=== PATIENT | male | born 1960 | race Caucasian/White ===

== ENCOUNTER 2016-06-13 14:23 | Emergency (ER) ==
[2016-06-13 14:27] VITALS: BP 136/87; TEMP 98.4; BMI 26.3
[2016-06-13 14:58] LABS: BASOPHILS % (AUTO) 0.5 % (0.0-3.0); EOSINOPHILS # (AUTO) 0.3 K/ul (0.0-0.7); HEMATOCRIT 44.3 % (42.0-52.0); HEMOGLOBIN 15.3 g/dl (14.0-18.0); IMMATURE GRANULOCYTE % (AUTO) 0.4 % (0.0-5.0); LYMPHOCYTES # (AUTO) 2.6 K/uL (0.60-3.4); LYMPHOCYTES % (AUTO) 30.7 (10.0-50.0); MEAN CORPUSCULAR HEMOGLOBIN 30.7 pg (27.0-31.0); MEAN CORPUSCULAR HGB CONC 34.5 (31.8-35.4); MONOCYTES # (AUTO) 0.7 K/uL (0.4-2.0); MONOCYTES % (AUTO) 8.7 (0-10); NEUTROPHILS # (AUTO) 4.8 K/ul (2.0-6.9); NEUTROPHILS % (AUTO) 56.7; PLATELET COUNT 154 10^3/uL (140-440); RED BLOOD COUNT 4.98 10^6/ul (4.70-6.10); WHITE BLOOD COUNT 8.41 K/ul (4.2-10.2)
--- NOTE | 2016-06-13 15:17 | DI ---
EXAM: Chest one view, frontal view only. HISTORY: Chest pain. COMPARISON: None available. FINDINGS: Median sternotomy wires noted. Left-sided pacemaker is present. The heart size is normal. There is no pulmonary vascular congestion. The lungs are clear. No pleural effusion or pneumotho rax is seen. No acute osseous abnormality is identified. IMPRESSION: No acute cardiopulmonary process.
[2016-06-13 15:36] LABS: ALANINE AMINOTRANSFERASE 41 U/L (12-78); ALBUMIN 3.8 g/dL (3.4-5.0); ALBUMIN/GLOBULIN RATIO 1.12; ALKALINE PHOSPHATASE 98 U/L (50-136); ANION GAP 11.6; ASPARTATE AMINO TRANSFERASE 41 U/L (15-37); BLOOD UREA NITROGEN 22 mg/dL (7-18); CALCIUM 8.8 mg/dL (8.2-10.2); CARBON DIOXIDE 25 mmol/L (21-32); CHLORIDE 108 mmol/L (98-107); CREATINE KINASE 800 U/L; GLUCOSE 81 mg/dL (70-100); POTASSIUM 4.6 mmol/L (3.5-5.1); SODIUM 140 mmol/L (136-145); TOTAL PROTEIN 7.2 g/dL (6.4-8.2)
[2016-06-13 15:54] LABS: PARTIAL THROMBOPLASTIN TIME 23.7 SEC (23.9-40.0); PROTHROMBIN TIME 9.7 SEC (9.3-11.0)
--- NOTE | 2016-06-13 16:33 | ED.PDOC ---
General ED Provider: Dr. MARÍA ELENA JULIO Chief Complaint: Chest Pain Stated Complaint: chest pain Time Seen by Physician: 14:24 (chest pain , occured 3 days ago history of aortic stensis with valve repair) Mode of Arrival: Walk-In Information Source: Patient Exam Limitations: No limitations [facility] and Triage Documentation Reviewed and Agree: Yes Cardiovascular Complaint Exam - Chest Pain Complaint/Exam Onset: Gradual Duration: 3days Symptoms Are: Still present Timing: Constant Initial Severity: Mild Current Severity: Mild Location: Reports: Midsternal Pain Radiates: Reports: None Character: Reports: Dull Aggravating: Reports: None Alleviating: Reports: None Associated Signs and Symptoms: Denies: Diaphoresis, Nausea, Vomiting, Fever, Palpitations, Cough, Hemoptysis, Back pain, Abdominal pain, Dizziness, Short of air, Calf pain, Calf swelling Related History: Reports: Similar episode Related Surgical History: Reports: None History of Healthcare-Acquired Pneumonia: Reports: No AMI/ACS Risk Factors: Reports: None TAD Risk Factors: Reports: None Pulmonary Embolism Risk Factors: Reports: None Prior Care for this Complaint: No Recent Stress Test: No Recent Echo/LV Function: No JVD Present: No Subcutaneous Emphysema Present: No Diminshed Breath Sounds: No Reproducible Chest Wall Pain: No Bilateral Pulses Present: No Unequal Pulses Noted: No If Risk Factors for AMI/ACS Consider: EKG, Cardiac Enzymes Differential Diagnoses: ACS, Stable Angina Quality Indicators For Acute NE or Cardiac Chest Pain: EKG in 10min. Review of Systems - Review Of Systems Constitutional: Reports: No symptoms Eyes: Reports: No symptoms Ears, Nose, Mouth, Throat: Reports: No symptoms Respiratory: Reports: No symptoms Cardiac: Reports: Chest pain GI: Reports: No symptoms : Reports: No symptoms Musculoskeletal: Reports: No symptoms Skin: Reports: No symptoms Neurological: Reports: No symptoms Endocrine: Reports: No symptoms Hematologic/Lymphatic: Reports: No symptoms All Other Systems: Reviewed and Negative Past Medical History - Past Medical History Previously Healthy: No Endocrine: Reports: None Cardiovascular: Reports: Hypertension Respiratory: Reports: Asthma Hematological: Reports: None Gastrointestinal: Reports: PUD Genitourinary: Reports: None Neuro/Psych: Reports: None Musculoskeletal: Reports: None Cancer: Reports: None - Surgical History General Surgical History: Reports: Pacemaker (AORTIC VALVE REPLACEMENT PACEMAKER ) - Family History Family History: Reports: Unknown - Social History Smoking Status: Former smoker Hx Substance Use: No Alcohol Screening: Occasionally Physical Exam - Physical Exam Appearance: Well-appearing, No pain distress, Well-nourished Eyes: JESSICA, EOMI, Conjunctiva clear ENT: Ears normal, Nose normal, Oropharynx normal Respiratory: Airway patent, Breath sounds clear, Breath sounds equal, Respirations nonlabored Cardiovascular: RRR, Pulses normal, No rub, No murmur GI/: Soft, Nontender, No masses, Bowel sounds normal, No Organomegaly Musculoskeletal: Normal strength, ROM intact, No edema, No calf tenderness Skin: Warm, Dry, Normal color Neurological: Sensation intact, Motor intact, Reflexes intact, Cranial nerves intact, Alert, Oriented Psychiatric: Affect appropriate, Mood appropriate Physician Notification - Case Discussed Physician Notified: anna YEPEZ Time of Notification: 16:34 Critical Care Note - Critical Care Note Total Time (mins): 0 Course - Course Hematology/Chemistry: 06/13/16 14:45 06/13/16 14:45 Orders, Labs, Meds: Lab Review 06/13/16 14:45 WBC 8.41 RBC 4.98 Hgb 15.3 Hct 44.3 MCV 89.0 MCH 30.7 MCHC 34.5 RDW Coeff of Kyara 13.1 Plt Count 154 Immature Gran % (Auto) 0.4 Neut % (Auto) 56.7 Lymph % (Auto) 30.7 [place] % (Auto) 8.7 Eos % (Auto) 3.0 Baso % (Auto) 0.5 Immature Gran # (Auto) 0.0 Neut # 4.8 Lymph # 2.6 [place] # 0.7 Eos # 0.3 Baso # 0.0 PT 9.7 INR 0.94 APTT 23.7 L D-Dimer 0.70 Sodium 140 Potassium 4.6 Chloride 108 H Carbon Dioxide 25 Anion Gap 11.6 BUN 22 H Creatinine 1.10 Estimated GFR (MDRD) 70.00 BUN/Creatinine Ratio 20.00 Glucose 81 Calcium 8.8 Total Bilirubin 0.30 AST 41 H ALT 41 Alkaline Phosphatase 98 Total Creatine Kinase 800 CK-MB (CK-2) 0.1 CK-MB (CK-2) % 0.59734 Troponin I < 0.0100 Total Protein 7.2 Albumin 3.8 Globulin 3.4 Albumin/Globulin Ratio 1.12 Orders Category Date Time Status EKG-(ED ONLY) Stat CARDIO 06/13/16 14:44 Ordered EKG-(ED ONLY) Stat CARDIO 06/13/16 16:06 Ordered ED IV/MEDIPORT/POWERPORT .ONCE EMERGENCY 06/13/16 14:44 Active CBC W/ AUTO DIFF Stat LAB 06/13/16 14:45 Completed COMPREHENSIVE METABOLIC PANEL Stat LAB 06/13/16 14:45 Completed CREATINE KINASE Stat LAB 06/13/16 14:45 Completed D-DIMER Stat LAB 06/13/16 14:45 Completed PARTIAL THROMBOPLASTIN TIME Stat LAB 06/13/16 14:45 Completed PT WITH INR Stat LAB 06/13/16 14:45 Completed TROPONIN I Stat LAB 06/13/16 14:45 Completed 0.9 % Sodium Chloride [Saline Flush] MEDS 06/13/16 14:43 Active 1 syr IVF PRN PRN CHEST, 1V AP ONLY Stat RADS 06/13/16 14:44 Completed Medications Generic Name Dose Route Start Last Admin Trade Name Freq PRN Reason Stop Dose Admin Sodium Chloride 1 syr 06/13/16 14:43 Saline Flush IVF PRN PRN To flush IV Vital Signs: Temp Pulse Resp BP Pulse Ox 06/13/16 14:23 98.4 F 78 16 136/87 95 PREETI Risk Score PREETI Risk Score: Risk Score Odds of by 30D 0 0.1 (0.1-0.2) 1 0.3 (0.2-0.3) 2 0.4 (0.3-0.5) 3 0.7 (0.6-0.9) 4 1.2 (1.0-1.5) 5 2.2 (1.9-2.6) 6 3.0 (2.5-3.6) 7 4.8 (3.8-6.1) Departure - Departure Time of Disposition: 16:34 Disposition: HOME SELF-CARE Discharge Problem: Chest pain Condition: Good Pt referred to PMD for follow-up: Yes (TRANSFER ) Allergies/Adverse Reactions: Allergies No Known Allergies Allergy (Unverified 06/13/16 14:27)
[2016-06-14 15:17] LABS: CREATINE KINASE MB 6.9 ng/ml (0.0-3.6)
== END 2016-06-13 16:57 | disposition short-term general hospital (02) ==
LOC: ED 14:23
DX: R07.9 Chest pain, unspecified (principal); I10 Essential (primary) hypertension; Z95.0 Presence of cardiac pacemaker; Z95.2 Presence of prosthetic heart valve
CPT/HCPCS: 36415; 80053; 82550; 82553; 84484; 85025; 85379; 85610; 85730; 93005; 93010; 99285

== ENCOUNTER 2016-06-13 17:00 | Outpatient (CLI) ==
[2016-06-13 14:27] VITALS: BMI 26.3
== END 2016-06-13 17:01 | disposition home or self-care (01) ==
LOC: AMBL 17:00
PROVIDERS: ATTEND Internal Medicine
DX: R07.9 Chest pain, unspecified (principal)

== ENCOUNTER 2016-07-21 19:51 | Emergency (ER) ==
[2016-07-21 20:06] VITALS: BP 137/84; TEMP 98.7; BMI 28.5
--- NOTE | 2016-07-21 20:54 | ED.PDOC ---
General ED Provider: Dr. MAKEDA FAN Chief Complaint: Abdominal Pain Stated Complaint: Patient is a 55 year old male who comes to the Er with a 1.5 month history of Left abd pain. He states that he has a history of ulcers and had been on medications for it but was discontinued after a while. Time Seen by Physician: 20:48 Mode of Arrival: Walk-In Information Source: Patient Exam Limitations: No limitations Nursing and Triage Documentation Reviewed and Agree: Yes GI Complaint Exam - Abdominal Pain Complaint/Exam Onset: Gradual Duration: 1 month Symptoms Are: Still present Timing: Intermittent Initial Severity: Mild Current Severity: Mild Location of Pain: LUQ Radiates To: Denies: Chest, Back, Flank, LLQ, RLQ, Inguinal Character: Reports: Dull Aggravating: Reports: None Alleviating: Reports: None Associated Signs and Symptoms: Reports: Constipation. Denies: Diaphoresis, Fever, Cough, Chest pain, Dizziness, Back pain, Blood in stool, Dysuria, Urinary frequency, Decreased urine output, Decreased appetite, Discharge, Nausea , Vomiting, Diarrhea, Decreased activity AAA Risk Factors: Reports: None Cardiac Risk Factors: Reports: None Testicular Torsion Risk Factors: Reports: None Surgical Obstruction Risk Factors: Reports: None Related Surgical History: Reports: None Abdominal Findings: Present: None Differential Diagnoses: Appendicitis, PUD Review of Systems - Review Of Systems Constitutional: Reports: No symptoms Eyes: Reports: No symptoms Ears, Nose, Mouth, Throat: Reports: No symptoms Respiratory: Reports: No symptoms Cardiac: Reports: No symptoms GI: Reports: Abdominal pain, Constipated : Reports: No symptoms Musculoskeletal: Reports: No symptoms Skin: Reports: No symptoms Neurological: Reports: No symptoms Endocrine: Reports: No symptoms Hematologic/Lymphatic: Reports: No symptoms All Other Systems: Reviewed and Negative Past Medical History - Past Medical History Previously Healthy: No Endocrine: Reports: None Cardiovascular: Reports: Hypertension Respiratory: Reports: Asthma Hematological: Reports: None Gastrointestinal: Reports: PUD Genitourinary: Reports: None Neuro/Psych: Reports: None Musculoskeletal: Reports: None Cancer: Reports: None - Surgical History General Surgical History: Reports: Pacemaker (AORTIC VALVE REPLACEMENT PACEMAKER ) - Family History Family History: Reports: Unknown - Social History Smoking Status: Current some day smoker, Light tobacco smoker Hx Substance Use: No Alcohol Screening: Occasionally Physical Exam - Physical Exam Appearance: Well-appearing, Well-nourished Ill-appearing: Mild Eyes: JESSICA, EOMI, Conjunctiva clear ENT: Ears normal, Nose normal, Oropharynx normal Respiratory: Airway patent, Breath sounds clear, Breath sounds equal, Respirations nonlabored Cardiovascular: RRR, Pulses normal, No rub, No murmur GI/: Soft, Nontender, No masses, Bowel sounds normal, No Organomegaly Musculoskeletal: Normal strength, ROM intact, No edema, No calf tenderness Skin: Warm, Dry, Normal color Neurological: Sensation intact, Motor intact, Reflexes intact, Cranial nerves intact, Alert, Oriented Psychiatric: Anxious Interpretation - Radiology Interpretation Radiology Interpretation By: Radiologist Radiology Results: Negative Exam Interpreted: CT Scan (Abdomen ) Critical Care Note - Critical Care Note Total Time (mins): 0 Course - Course Hematology/Chemistry: 07/21/16 21:23 07/21/16 21:23 Orders, Labs, Meds: Lab Review 07/21/16 21:23 WBC 9.35 RBC 5.14 Hgb 15.6 Hct 45.7 MCV 88.9 MCH 30.4 MCHC 34.1 RDW Coeff of [place] 13.0 Plt Count 180 Immature Gran % (Auto) 0.1 Neut % (Auto) 60.3 Lymph % (Auto) 27.1 [place] % (Auto) 8.7 Eos % (Auto) 3.3 Baso % (Auto) 0.5 Immature Gran # (Auto) 0.0 Neut # 5.6 Lymph # 2.5 [place] # 0.8 Eos # 0.3 Baso # 0.1 Sodium 142 Potassium 4.1 Chloride 105 Carbon Dioxide 28 Anion Gap 13.1 BUN 20 H Creatinine 1.12 H Estimated GFR (MDRD) 68.00 BUN/Creatinine Ratio 17.85 Glucose 79 Calcium 9.0 Total Bilirubin 0.42 AST 31 ALT 31 Alkaline Phosphatase 102 Total Protein 7.3 Albumin 4.0 Globulin 3.3 Albumin/Globulin Ratio 1.21 Amylase 57 Lipase 44 Orders Category Date Time Status ED IV/MEDIPORT/POWERPORT .ONCE EMERGENCY 07/21/16 21:39 Active AMYLASE Stat LAB 07/21/16 21:23 Completed CBC W/ AUTO DIFF Stat LAB 07/21/16 21:23 Completed COMPREHENSIVE METABOLIC PANEL Stat LAB 07/21/16 21:23 Completed LIPASE Stat LAB 07/21/16 21:23 Completed 0.9 % Sodium Chloride [Saline Flush] MEDS 07/21/16 21:39 Discontinued 1 syr IVF PRN PRN Dicyclomine HCl [Bentyl] MEDS 07/21/16 22:33 Discontinued 20 mg PO ONCE STA Ondansetron HCl/Pf [Zofran 4 mg/2 ml] MEDS 07/21/16 21:40 Discontinued 4 mg IVP ONCE STA Pantoprazole Sodium [Protonix IV] MEDS 07/21/16 21:39 Discontinued [address]P ONCE [address] CT ABD/PEL WO RENAL STONE PROT Stat RADS 07/21/16 21:01 Completed Medications Discontinued Medications Generic Name Dose Route Start Last Admin Trade Name Freq PRN Reason Stop Dose Admin Dicyclomine HCl 20 mg 07/21/16 22:33 07/21/16 22:45 Bentyl PO 07/21/16 22:34 20 mg ONCE STA Administration Ondansetron HCl 4 mg 07/21/16 21:40 07/21/16 22:26 Zofran 4 Mg/2 Ml IVP 07/21/16 21:41 4 mg ONCE STA Administration Pantoprazole Sodium 40 mg 07/21/16 21:39 07/21/16 22:25 Protonix Iv IVP 07/21/16 21:40 40 mg ONCE STA Administration Sodium Chloride 1 syr 07/21/16 21:39 Saline Flush IVF PRN PRN To flush IV Vital Signs: Temp Pulse Resp BP Pulse Ox 07/21/16 19:55 98.7 F 67 20 137/84 95 Departure - Departure Time of Disposition: 22:33 Disposition: HOME SELF-CARE Discharge Problem: Abdominal pain Instructions: Abdominal Pain (ED) Condition: Fair Pt referred to PMD for follow-up: Yes Additional Instructions: Take Over the counter Prilosec daily Follow up with PCP in 3 days Prescriptions: Dicyclomine HCl [Bentyl] 10 mg PO TID PRN #20 capsule PRN Reason: Abdominal Pain Allergies/Adverse Reactions: Allergies No Known Allergies Allergy (Verified 07/21/16 20:01) Home Medications: Ambulatory Orders Dicyclomine HCl [Bentyl] 10 mg PO TID PRN #20 capsule 07/21/16 Metoprolol Succinate 25 mg PO BID 07/21/16 Disposition Discussed With: Patient
[2016-07-21 21:28] LABS: BASOPHILS # (AUTO) 0.1 K/uL (0-0.2); BASOPHILS % (AUTO) 0.5 % (0.0-3.0); EOSINOPHILS # (AUTO) 0.3 K/ul (0.0-0.7); EOSINOPHILS % (AUTO) 3.3 % (0.0-7.0); HEMATOCRIT 45.7 % (42.0-52.0); HEMOGLOBIN 15.6 g/dl (14.0-18.0); IMMATURE GRANULOCYTE % (AUTO) 0.1 % (0.0-5.0); LYMPHOCYTES # (AUTO) 2.5 K/uL (0.60-3.4); LYMPHOCYTES % (AUTO) 27.1 (10.0-50.0); MEAN CORPUSCULAR HEMOGLOBIN 30.4 pg (27.0-31.0); MEAN CORPUSCULAR HGB CONC 34.1 (31.8-35.4); MEAN CORPUSCULAR VOLUME 88.9 fl (80.0-94.0); MONOCYTES # (AUTO) 0.8 K/uL (0.4-2.0); MONOCYTES % (AUTO) 8.7 (0-10); NEUTROPHILS # (AUTO) 5.6 K/ul (2.0-6.9); NEUTROPHILS % (AUTO) 60.3; PLATELET COUNT 180 10^3/uL (140-440); RED BLOOD COUNT 5.14 10^6/ul (4.70-6.10); WHITE BLOOD COUNT 9.35 K/ul (4.2-10.2)
--- NOTE | 2016-07-21 21:37 | CT ---
Exam: CT of the abdomen and pelvis without contrast History: Abdominal pain Technique: [address] of the abdomen pelvis without intravascular contrast FINDINGS: The lung bases are clear. No significant liver abnormality. The adrenals, pancreas and sp sai are unremarkable. The stomach and hiatus are unremarkable. Cholelithiasis without pericholecyst ic inflammation or abnormal gallbladder distension. Kidneys and proximal collecting system are unrem arkable. The appendix is normal. Bowel loops demonstrate normal caliber. No inflamatory change seen in the mesentery or retroperitoneum. Vascular structures appear normal by noncontrast CT. Pelvic genitourinary structures appear normal. Pelvic bowel loops are unremarkable. No inflammatory change in the pelvic fat. No acute abnormality of the abdominal or pelvic skeleton. Impression: 1. No inflammatory process, bowel or urinary obstruction is seen. No acute findings of the abdomen or pelvis. 2. Cholelithiasis without CT evidence of cholecystitis
[2016-07-21 21:49] LABS: ALBUMIN/GLOBULIN RATIO 1.21; ANION GAP 13.1; BILIRUBIN,TOTAL 0.42 mg/dL (0.00-1.20); BUN/CREATININE RATIO 17.85; CREATININE 1.12 mg/dL (0.60-1.10); POTASSIUM 4.1 mmol/L (3.5-5.1); TOTAL PROTEIN 7.3 g/dL (6.4-8.2)
[2016-07-21] MEDS: PROTONIX IV IVP STA (22:25)
[2016-07-21] MEDS: ZOFRAN 4 MG/2 ML IVP STA (22:26)
[2016-07-21] MEDS: BENTYL PO STA (22:45)
== END 2016-07-21 22:51 | disposition home or self-care (01) ==
LOC: ED 19:51
DX: R10.12 Left upper quadrant pain (principal); F17.210 Nicotine dependence, cigarettes, uncomplicated
CPT/HCPCS: 36415; 74176; 80053; 82150; 83690; 85025; 96375; 99283

== ENCOUNTER 2016-09-23 14:34 | Outpatient (CLI) ==
[2016-09-23 18:16] LABS: ALBUMIN 4.1 g/dL (3.4-5.0); ALBUMIN/GLOBULIN RATIO 1.14; ANION GAP 11.2; BILIRUBIN,TOTAL 0.68 mg/dL (0.00-1.20); BUN/CREATININE RATIO 19.23; CALCIUM 9.2 mg/dL (8.2-10.2); CHOL/HDL RATIO 5.2 (4.5-6.4); CREATININE 1.04 mg/dL (0.60-1.10); POTASSIUM 4.2 mmol/L (3.5-5.1); TOTAL PROTEIN 7.7 g/dL (6.4-8.2)
== END 2016-09-23 14:35 | disposition home or self-care (01) ==
LOC: LAB 14:34
PROVIDERS: ATTEND Nurse Practitioner Family
DX: Z95.2 Presence of prosthetic heart valve (principal); Z12.5 Encounter for screening for malignant neoplasm of prostate
CPT/HCPCS: 36415; 80053; 80061; 84443

== ENCOUNTER 2017-02-06 11:46 | Outpatient (CLI) ==
--- NOTE | 2017-02-06 13:02 | DI ---
Exam: Three x-rays of the right foot. Comparison: None available. Reason for exam: Pain in right foot. FINDINGS: No acute fracture or dislocation. The joint spaces are well maintained. There is a moder ate amount of arthrosis seen in the midfoot. No unexplained calcific soft tissue densities or radiop aque retained foreign bodies. Impression: No acute fracture or dislocation in the right foot
--- NOTE | 2017-02-06 13:05 | DI ---
Exam: Three x-rays of the left foot. Comparison: None available. Reason for exam: Pain in left foot. FINDINGS: No acute fracture or malalignment. The joint spaces are well maintained. Degenerative di sease is seen in the midfoot and calcaneus. Impression: No acute fracture or dislocation in the left foot
== END 2017-02-06 11:47 | disposition home or self-care (01) ==
LOC: RAD 11:46
PROVIDERS: ATTEND Nurse Practitioner Family
DX: M79.672 Pain in left foot (principal); M79.671 Pain in right foot

== ENCOUNTER 2017-04-19 12:46 | Outpatient (CLI) ==
[2017-04-19 13:30] LABS: BASOPHILS # (AUTO) 0.1 K/uL (0-0.2); BASOPHILS % (AUTO) 0.8 % (0.0-3.0); EOSINOPHILS # (AUTO) 0.3 K/ul (0.0-0.7); HEMATOCRIT 47.2 % (42.0-52.0); IMMATURE GRANULOCYTE % (AUTO) 0.2 % (0.0-5.0); LYMPHOCYTES # (AUTO) 1.8 K/uL (0.60-3.4); LYMPHOCYTES % (AUTO) 28.7 (10.0-50.0); MEAN CORPUSCULAR HEMOGLOBIN 30.2 pg (27.0-31.0); MEAN CORPUSCULAR HGB CONC 33.9 (31.8-35.4); MEAN CORPUSCULAR VOLUME 89.2 fl (80.0-94.0); MONOCYTES # (AUTO) 0.6 K/uL (0.4-2.0); MONOCYTES % (AUTO) 9.1 (0-10); NEUTROPHILS # (AUTO) 3.6 K/ul (2.0-6.9); NEUTROPHILS % (AUTO) 57.2; PLATELET COUNT 193 10^3/uL (140-440); RED BLOOD COUNT 5.29 10^6/ul (4.70-6.10); WHITE BLOOD COUNT 6.23 K/ul (4.2-10.2)
[2017-04-19 14:15] LABS: ALBUMIN/GLOBULIN RATIO 1.08; ANION GAP 14.6; BILIRUBIN,TOTAL 0.34 mg/dL (0.00-1.20); BUN/CREATININE RATIO 21.15; CALCIUM 9.6 mg/dL (8.2-10.2); CHOL/HDL RATIO 4.8 (4.5-6.4); CREATININE 1.04 mg/dL (0.60-1.10); POTASSIUM 4.6 mmol/L (3.5-5.1); TOTAL PROTEIN 7.7 g/dL (6.4-8.2)
== END 2017-04-19 12:47 | disposition home or self-care (01) ==
LOC: LAB 12:46
PROVIDERS: ATTEND Nurse Practitioner Family
DX: E78.5 Hyperlipidemia, unspecified (principal); K21.9 Gastro-esophageal reflux disease without esophagitis; R53.83 Other fatigue
CPT/HCPCS: 36415; 80053; 80061; 82306; 84439; 84443; 85025

== ENCOUNTER 2017-05-10 10:35 | Emergency (ER) ==
[2017-05-10 10:46] VITALS: BP 138/79; TEMP 103.3; BMI 28.2
--- NOTE | 2017-05-10 11:17 | DI ---
Exam: Three x-rays of the chest. Comparison: 06/13/2016. Reason for exam: Cough. FINDINGS: Operative changes are seen after midline sternotomy and implanted intracardiac device plac ement. No pneumothorax, pleural effusion, or focal consolidation. The cardiac silhouette is unchanged. The imaged osseous structures appear grossly unremarkable without acute fracture. Degenerative disease is seen in the thoracic spine. Impression: No acute cardiopulmonary process.
[2017-05-10] MEDS ORDERED: ZITHROMAX PO STA (12:02)
[2017-05-10] MEDS ORDERED: SODIUM CHLORIDE 1,000 ML IV STA (12:02)
[2017-05-10] MEDS ORDERED: SOLU-MEDROL 125 MG IVP STA (12:02)
[2017-05-10] MEDS ORDERED: TUSSIONEX PO STA ×2 (12:03→12:11)
--- NOTE | 2017-05-10 13:18 | ED.PDOC ---
General ED Provider: Dr. MARÍA ELENA JULIO Chief Complaint: Respiratory Complaint Stated Complaint: cough, flu like symptoms Time Seen by Physician: 11:00 (seen with staff ) Mode of Arrival: Walk-In Information Source: Patient Exam Limitations: No limitations [facility] and Triage Documentation Reviewed and Agree: Yes Reviewed sepsis parameters & appropriate labs ordered?: Yes System Inflammatory Response Syndrome: Temp 101F or Greater Sepsis Protocol: For patient's 13 years and over: Temp is 96.8 and below OR 101 and greater Pulse >90 BPM Resp >20/minute Acutely Altered Mental Status Are patient's symptoms suggestive of a new infection, such as: -Pneumonia -Skin, Soft Tissue -Endocarditis -UTI -Bone, Joint Infection -Implantable Device -Acute Abdominal Infection -Wound Infection -Meningitis -Blood Stream Catheter Infection -Unknown Respiratory Complaint Exam - Respiratory Complaint/Exam Onset/Duration: 2 days of flu like symptoms Symptoms Are: Still present Timing: Intermittent Initial Severity: Moderate Current Severity: Moderate Location: Nose, Throat, Chest Character: Reports: Non-productive cough, Dry cough Aggravating: Reports: URI Alleviating: Reports: Spontaneous resolution, Antibiotics Associated Signs and Symptoms: Reports: Nasal congestion, Sore throat. Denies: Rapid breathing, Dyspnea, Fever, Chills, Chest pain, Pleuritic chest pain, Wheezing, Hemoptysis, Dizziness, Calf pain, Calf swelling, Edema, URI, Hoarseness, Sinus discomfort, Vomiting, Weight loss, Decreased oral intake, Increased thirst, Increased appetite, Increased urination Related History: Reports: Similar episode History of Healthcare-Acquired Pneumonia: No Related Surgical History: Reports: None Pulmonary Embolism Risk Factors: None Cardiac Risk Factors: Reports: None Pseudomonas Risk Factors: Reports: None Tuberculosis Risk Factors: Reports: None Status Asthmaticus Risk Factors: Reports: None Home Oxygen Use: No Recent Stress Test: No Recent Echo/LV Function: No Current Antibiotic Use: No Current Asthma Medication Use: No Respiratory Distress: None Inadequate Respiratory Effort: No Dysphagia Present: No Stridor Present: No JVD Present: No Accessory Muscle Use: No Retractions: Not Present Diminished Breath Sounds: No Grunting Respirations: No Kussmaul Respirations: No Differential Diagnoses: Pneumonia, Bronchitis, Lower Resp. Infection Review of Systems - Review Of Systems Constitutional: Reports: No symptoms Eyes: Reports: No symptoms Ears, Nose, Mouth, Throat: Reports: No symptoms Respiratory: Reports: Cough Cardiac: Reports: No symptoms GI: Reports: Nausea, Vomiting : Reports: No symptoms Musculoskeletal: Reports: No symptoms Skin: Reports: No symptoms Neurological: Reports: No symptoms Endocrine: Reports: No symptoms Hematologic/Lymphatic: Reports: No symptoms All Other Systems: Reviewed and Negative Past Medical History - Past Medical History Previously Healthy: No Endocrine: Reports: None Cardiovascular: Reports: Hypertension Respiratory: Reports: Asthma Hematological: Reports: None Gastrointestinal: Reports: PUD Genitourinary: Reports: None Neuro/Psych: Reports: None Musculoskeletal: Reports: None Cancer: Reports: None - Surgical History General Surgical History: Reports: Pacemaker (AORTIC VALVE REPLACEMENT PACEMAKER ) - Family History Family History: Reports: Unknown - Social History Smoking Status: Former smoker, Light tobacco smoker Hx Substance Use: No Alcohol Screening: None Physical Exam - Physical Exam Appearance: Ill-appearing Ill-appearing: Moderate Pain Distress: Moderate Eyes: JESSICA, EOMI, Conjunctiva clear ENT: Ears normal, Nose normal, Oropharynx normal Respiratory: Rhonchi Cardiovascular: RRR, Pulses normal, No rub, No murmur GI/: Soft, Nontender, No masses, Bowel sounds normal, No Organomegaly Musculoskeletal: Normal strength, ROM intact, No edema, No calf tenderness Skin: Warm, Dry, Normal color Neurological: Sensation intact, Motor intact, Reflexes intact, Cranial nerves intact, Alert, Oriented Psychiatric: Affect appropriate, Mood appropriate Interpretation - Radiology Interpretation Radiology Interpretation By: Radiologist Radiology Results: No acute changes Critical Care Note - Critical Care Note Total Time (mins): 0 Course - Course Hematology/Chemistry: 05/10/17 10:51 05/10/17 11:15 Orders, Labs, Meds: Lab Review 05/10/17 05/10/17 05/10/17 10:45 10:51 11:15 WBC 7.99 RBC 5.49 Hgb 16.9 Hct 48.9 MCV 89.1 MCH 30.8 MCHC 34.6 RDW Coeff of Kyara 13.3 Plt Count 145 Immature Gran % (Auto) 0.3 Neut % (Auto) 80.0 Lymph % (Auto) 9.9 L [place] % (Auto) 8.9 Eos % (Auto) 0.3 Baso % (Auto) 0.6 Immature Gran # (Auto) 0.0 Neut # 6.4 Lymph # 0.8 [place] # 0.7 Eos # 0.0 Baso # 0.1 Sodium 138 Potassium 4.1 Chloride 102 Carbon Dioxide 27 Anion Gap 13.1 BUN 15 Creatinine 1.42 H Estimated GFR (MDRD) 52.00 BUN/Creatinine Ratio 10.56 Glucose 99 Lactic Acid Calcium 9.3 Total Bilirubin 0.5 AST 28 ALT 36 Alkaline Phosphatase 109 Total Protein 8.0 Albumin 4.2 Globulin 3.8 Albumin/Globulin Ratio 1.11 Procalcitonin Influenza A (Rapid) Positive by naat H Influenza B (Rapid) Negative by naat 05/10/17 05/10/17 11:15 11:15 WBC RBC Hgb Hct MCV MCH MCHC RDW Coeff of Kyara Plt Count Immature Gran % (Auto) Neut % (Auto) Lymph % (Auto) [place] % (Auto) Eos % (Auto) Baso % (Auto) Immature Gran # (Auto) Neut # Lymph # [place] # Eos # Baso # Sodium Potassium Chloride Carbon Dioxide Anion Gap BUN Creatinine Estimated GFR (MDRD) BUN/Creatinine Ratio Glucose Lactic Acid 8.9 Calcium Total Bilirubin AST ALT Alkaline Phosphatase Total Protein Albumin Globulin Albumin/Globulin Ratio Procalcitonin 0.12 Influenza A (Rapid) Influenza B (Rapid) Orders Category Date Time Status BLOOD CULTURE (ED ONLY) Stat LAB 05/10/17 11:15 Received CBC W/ AUTO DIFF Stat LAB 05/10/17 10:51 Completed COMPREHENSIVE METABOLIC PANEL Stat LAB 05/10/17 11:15 Completed LACTIC ACID Stat LAB 05/10/17 11:15 Completed MOLECULAR FLU A/B Stat LAB 05/10/17 10:45 Completed MOLECULAR GROUP A STREP Stat LAB 05/10/17 10:45 Results PROCALCITONIN Stat LAB 05/10/17 11:15 Completed STREP SCREEN Stat LAB 05/10/17 10:45 Results Azithromycin [Zithromax] MEDS 05/10/17 12:02 Discontinued 1,000 mg PO ONCE STA Hydrocodone/Chlorphen Polis [Tussionex] MEDS 05/10/17 12:11 Discontinued 5 ml PO ONCE STA Methylprednisolone Sod Succ/Pf [Solu-Medrol 125 mg] MEDS 05/10/17 12:02 Discontinued 125 mg IVP ONCE STA Sodium Chloride 0.9% [Sodium Chloride] 1,000 ml MEDS 05/10/17 12:02 Discontinued IV BOLUS CHEST, 2 VIEWS PA & LAT Stat RADS 12/27/17 10:51 Completed Medications Discontinued Medications Generic Name Dose Route Start Last Admin Trade Name Mary PRN Reason Stop Dose Admin Azithromycin 1,000 mg 05/10/17 12:02 05/10/17 12:33 Zithromax PO 05/10/17 12:03 1,000 mg ONCE STA Administration Chlorphenir/Hydrocodone Polistirex 5 ml 05/10/17 12:11 05/10/17 12:32 Tussionex PO 05/10/17 12:12 5 ml ONCE STA Administration Sodium Chloride 1,000 mls @ 1,000 mls/hr 05/10/17 12:02 05/10/17 12:35 Sodium Chloride IV 05/10/17 13:01 1,000 mls/hr BOLUS STA Administration Methylprednisolone Sodium Succinate 125 mg 05/10/17 12:02 05/10/17 12:35 Solu-Medrol 125 Mg IVP 05/10/17 12:03 125 mg ONCE STA Administration Vital Signs: Temp Pulse Resp BP Pulse Ox 05/10/17 10:38 103.3 F H 99 H 20 138/79 95 Departure - Departure Time of Disposition: 13:18 Disposition: HOME SELF-CARE Discharge Problem: Influenza Instructions: Pharyngitis (ED), Influenza (ED) Condition: Good Pt referred to PMD for follow-up: Yes Additional Instructions: Please call your Family Physician as soon as possible to schedule a follow-up appointment. Allergies/Adverse Reactions: Allergies No Known Allergies Allergy (Verified 05/10/17 10:37) Home Medications: Ambulatory Orders Metoprolol Succinate 25 mg PO BID 07/21/16 Disposition Discussed With: Patient
== END 2017-05-10 13:35 | disposition home or self-care (01) ==
LOC: ED 10:35
DX: J09.X2 Influenza due to identified novel influenza A virus with other respiratory manifestations (principal)
CPT/HCPCS: 36415; 80053; 83605; 84145; 85025; 87040; 87502; 87651; 87880; 96361; 96374; 99283

== ENCOUNTER 2017-08-31 08:19 | Outpatient (CLI) | END 2017-08-31 08:20 | disposition home or self-care (01) | LOC: LAB 08:19 | PROVIDERS: ATTEND Internal Medicine | DX: I10 Essential (primary) hypertension (principal) | CPT/HCPCS: 36415; 80053; 80061; 85025 ==

== ENCOUNTER 2017-10-06 10:13 | Outpatient (CLI) ==
--- NOTE | 2017-10-06 10:44 | DI ---
EXAM: Two views of the chest. History: Chest pain. Comparison: Chest radiograph 05/10/2017 Findings: Heart size is within normal limits. Pacer device and sternotomy wires are seen. Some typ e of heart valve device is identified. No focal consolidation. No appreciable pleural fluid and no p neumothorax. No acute osseous abnormalities. Impression: No acute cardiopulmonary process. No change compared to the prior study
--- NOTE | 2017-10-06 10:47 | DI ---
EXAM: Three views of the left foot. History: Left foot pain. Comparison: Left foot radiograph 02/06/2017 Findings: No acute fracture or dislocation. Mild calcaneal enthesiopathy. Mild to moderate degener ative changes seen at the mid foot with small dorsal osteophytes not significantly changed. Joint sp aces are otherwise preserved. Impression: 1. No acute osseous abnormality. 2. Mild to moderate degenerate changes seen at the mid foot. 3. Mild calcaneal enthesiopathy
--- NOTE | 2017-10-06 12:49 | DI ---
EXAM: Lumbar spine five views HISTORY: Low back pain FINDINGS: No comparison. Bone density appears within normal limits. There is subtle spinal curvatur e toward the left suggesting minimal scoliosis versus patient position. Sacroiliac joints are within normal limits. Lateral views reveal bridging osteophytic spurring of the mid lumbar spine. No loss of vertebral body height, fracture or spondylolisthesis. Mild to moderate facet arthropathy and deg enerative disc disease lumbosacral junction. Oblique views reveal intact pars interarticularis struc tures. IMPRESSION: Early degenerative changes of the spine including mild to moderate facet arthropathy and degenerative disc disease of the lumbosacral junction.
== END 2017-10-06 10:14 | disposition home or self-care (01) ==
LOC: CAR 10:13
PROVIDERS: ATTEND Nurse Practitioner Family
DX: M54.5 Low back pain (principal); I10 Essential (primary) hypertension; E78.5 Hyperlipidemia, unspecified; M79.622 Pain in left upper arm; M79.672 Pain in left foot; Z95.2 Presence of prosthetic heart valve
CPT/HCPCS: 36415; 80053; 80061; 81001; 85025; 93005; 93010

== ENCOUNTER 2017-10-19 09:36 | Outpatient (CLI) ==
--- NOTE | 2017-10-19 10:46 | DI ---
EXAM: Left shoulder three view HISTORY: Radiculopathy, cervical region COMPARISON: None FINDINGS: The bones are normal. The glenohumeral joint and acromioclavicular joint are normal. No fo maribell soft tissue abnormality. Visualized portion of the chest is normal. Left-sided cardiac pacer. IMPERSSION: Normal examination left shoulder.
--- NOTE | 2017-10-19 10:51 | DI ---
EXAM: Cervical spine seven views, including flexion and extension lateral views and oblique views HISTORY: Dizziness and giddiness COMPARISON: None TECHNIQUE: Seven views cervical spine were performed including flexion and extension lateral views a nd oblique views FINDINGS: C7 is obscured on the lateral and swimmers view. Vertebral bodies normal height. No fractu re. Multilevel marginal osteophyte formation. Multilevel facet and uncovertebral hypertrophy. Inter vertebral disc spaces maintained. Degenerative changes cause mild to moderate multilevel bilateral n eural foraminal narrowing. Straightening of the normal cervical lordosis in neutral position. No sp ondylolisthesis visualized in neutral position or with flexion or extension, noting C6 and C7 are obs cured on lateral views. IMPRESSION: Chronic discogenic degenerative disease and facet arthrosis. Straightening of the jus l cervical lordosis. No spondylolisthesis or segment instability visualized.
== END 2017-10-19 09:37 | disposition home or self-care (01) ==
LOC: RAD 09:36
PROVIDERS: ATTEND Nurse Practitioner Family
DX: R42 Dizziness and giddiness (principal); M54.2 Cervicalgia; M54.12 Radiculopathy, cervical region; M25.512 Pain in left shoulder

== ENCOUNTER 2017-10-25 10:20 | Outpatient (RCR) ==
--- NOTE | 2017-10-25 15:22 | RS.OPPTEV2 ---
Date of Note: 10/25/17 Visit #: 1 Date of Evaluation: 10/25/17 Payer Source: Medicaid Surgery Performed?: No Treatment Diagnosis: Left UE radiculopathy History of Condition/Mechanism of Injury:: Patient reports having tingling in the left UE for approximately 5 months. Denies any history of neck injury. 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 States he has tingling and pain into the left UE all the way to the tips of his fingers. States tingling has been constant for a while. Denies any right UE symptoms. He is right hand dominant. He has not noticed any deficit in left UE strength. Reports he gets lightheaded occasionally. He has not noticed any vision problems and no limited neck motion. *Precautions: PACEMAKER Medical History Surgical History Comments:: Heart valve 2014, Pacemaker 2014 Smoking Status: Former smoker Hx Home Medications: muscle relaxant. Patient's Goals: His goal is to get relief of left UE symptoms. Pain Assessment - Pain Description Pain Location: left UE Current Pain Intensity: 2/10 Worst Pain Intensity: 6/10 Functional Outcome Measure Neck Disability Index: 20 - G Codes & Severity Modifier G Codes & Modifier: NA Source of G Code score: NA Observation - Observation Posture: Forward Head, Rounded Shoulders Handedness: Right - ROM Comments: Cervical extension is approximately 50% of normal range. Flexion is WFL's. Cervical rotation bilaterally 75% of normal range of motion. Bilateral UE AROM is WFL's. - Strength Comments: Neck muscle strength is grossly 4+/5. Bilateral UE strength 5/5. - Special Tests Thoracic Outlet Test: Negative Left, Negative Right Ironer Or Presser Strength Left Hand Ironer Or Presser Strength: 52 lbs. Right Hand Ironer Or Presser Strength: 55 lbs. Dynamometer Testing Position: 2nd Position Palpation Comments:: Patient denies any pain during palpation to the cervical paraspinals , upper and middle traps. Demonstrates minimal increased muscle tone along bilateral cervical paraspinals and left upper traps. Sensation - Sensation Comments: Reports tingling throughout the entire left UE to the finger tips. Interventions - Exercise/Activities/Manual Therapy Exercises/Activities: Patient instructed in stretching into cervical lateral flexion and rotation. Also instructed in scapular retraction for home. Total minutes of Exercise: X 10 mins Manual Therapy: NA HOME EXERCISE PROGRAM: stretching into cervical lateral flexion and rotation. Also instructed in scapular retraction - Charges Timed Code Treatment Minutes: 0 mins Total Treatment Time: 38 mins Procedures billed for this date of service:: EVAL Low EVALUATION COMPLEXITY LEVEL EVALUATION COMPLEXITY LEVEL: HISTORY: Low, EXAM OF BODY SYSTEMS: Low, CLINICAL PRESENTATION: Low, CLINICAL DECISION MAKING: Low Assessment Assessment: Patient presents to therapy with a diagnosis of cervical degnerative disc disease and cervical facet arthropathy. He reports constant left UE tingling throughout the entire arm and hand. He reports no neck pain. Upon examination, he demonstrates decreased cervical AROM and minimal increased muscle tone in the cervical paraspinals and in the left upper traps. He has a forward head and shoulder posture. It is difficult to determine change in symptoms with Special Tests due to patient's reports of already having tingling and being vague regarding how tests affect his symptoms. He shows potential to benefit from stretching and postural strengthening exercises. He may also benefit from cervical traction to reduce his left UE radiating symptoms. Patient Education: Education of diagnosis, Body/Joint mechanics, Home Exercise Program, Activity Modification, Education of Plan of Care Rehab Potential: Good Short Term Goals Goal #1: Patient independent and compliant with HEP. Goal to be met by: 11/08/17 Goal #2: Left radicular symptom frequency decreased to less than constant. Goal to be met by: 11/08/17 Goal #3: Pt to demonstrate improved postural awareness. 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 Goal to be met by: 12/09/17 Goal #2: Score on Neck Disability Index improved to 8. Goal to be met by: 12/09/17 Goal #3: Pt to report no further symptoms of tingling into the left UE. Goal to be met by: 12/09/17 Plan - Treatment to be Provided Procedures: Therapeutic Exercises, Therapeutic Activity, Manual Therapy, Patient Education Modalities: Cryotherapy, Hot Packs, Mechanical Traction (CERVICAL) Other:: PATIENT HAS A PACEMAKER - Treatment Plan Frequency: 3 X week Duration: 3 weeks ORDER # VISITS AND/OR THROUGH DATE: 12/09/17 - Treatment Code (1) Cervical radiculopathy Code(s): M54.12 - RADICULOPATHY, CERVICAL REGION Comments: M54.12 (2) Tingling of left upper extremity Code(s): R20.2 - PARESTHESIA OF SKIN Comments: R20.2 (3) Cervical paraspinal muscle spasm Code(s): M62.49 - CONTRACTURE OF MUSCLE, MULTIPLE SITES Comments: M62.838 muscle spasm, not contracture
== END 2017-11-11 23:59 ==
PROVIDERS: ATTEND Nurse Practitioner Family
DX: M50.30 Other cervical disc degeneration, unspecified cervical region (principal); M46.92 Unspecified inflammatory spondylopathy, cervical region; M54.12 Radiculopathy, cervical region; R20.2 Paresthesia of skin; M62.838 Other muscle spasm

== ENCOUNTER 2017-12-29 12:57 | Outpatient (CLI) | END 2017-12-29 12:58 | disposition home or self-care (01) | LOC: FCC-LAB 12:57 | PROVIDERS: ATTEND Family Medicine | DX: R20.0 Anesthesia of skin (principal); E55.9 Vitamin D deficiency, unspecified | CPT/HCPCS: 36415; 82306; 82607 ==

== ENCOUNTER 2018-01-23 06:08 | Outpatient (CLI) ==
--- NOTE | 2018-01-25 12:34 | ECHO2D ---
Date of Exam: 01/23/18 Ordering Physician: DR. HILLARY MILLS Room #: OP Reason for Echo: HISTORY OF AORTIC VALVE REPLACEMENT-MURMUR M-Mode Normal Adult Results LV Dimensions Normal Adult Results AoV Opening excursions >1.6 >1.6 LVEDD-base- 3.5-5.8 5.2 Ao root dimensions 2.0-3.7 3.8 LVESD-base- 3.1-4.6 L. Atrium dimensions 1.9-3.8 3.7 Post. Wall thickness 0.8-1.1 1.3 IV septum (thickness) 0.7-1.2 1.4 Post. Wall excursion 0.72-1.3 NORMAL Septal motion NORMAL Systolic motion R. Ventricular cavity 1.5-2.0 NORMAL LVEF 60% 57% Paradoxical septal wall motion NORMAL 2-D : NORMALLY FUNCTIONING AORTIC VALVE--NORMAL LEFT VENTRICULAR CONTRACTILITY-- NORMAL TRICUSPID VALVE AND MITRAL VALVE--NO EFFUSION, NO THROMBUS M-MODE: MV: NORMAL AV: NORMAL PROSTHETIC VALVE TV: NORMAL PV: CHAMBER SIZE: NORMAL WALL MOTION: NORMAL PERICARDIUM: NORMAL INTERPRETATION: 1. LEFT VENTRICULAR HYPERTROPHY 2. NORMAL LEFT VENTRICULAR CONTRACTILITY 3. NORMAL AORTIC VALVE PROSTHESIS WITH NORMAL FUNCTION MTDD
== END 2018-01-23 06:09 | disposition home or self-care (01) ==
LOC: CAR 06:08
PROVIDERS: ATTEND Family Medicine
DX: R01.1 Cardiac murmur, unspecified (principal); Z95.2 Presence of prosthetic heart valve

== ENCOUNTER 2018-05-11 | Outpatient (CLI) | END 2018-05-11 06:13 | disposition home or self-care (01) ==

== ENCOUNTER 2019-01-03 06:13 | Outpatient (CLI) ==
--- NOTE | 2019-01-04 08:44 | ECHO2D ---
Date of Exam: 01/03/19 Ordering Physician: DR. HILLARY MILLS Room #: OP Reason for Echo: ATYPICAL CHEST PAIN, SOB, AORTIC VALVE REPLACED 2014 Murmurs: SYSTOLIC M-Mode Normal Adult Results LV Dimensions Normal Adult Results AoV Opening excursions >1.6 1.6 LVEDD-base- 3.5-5.8 5.3 Ao root dimensions 2.0-3.7 3.4 LVESD-base- 3.1-4.6 L. Atrium dimensions 1.9-3.8 3.8 Post. Wall thickness 0.8-1.1 1.2 IV septum (thickness) 0.7-1.2 1.3 Post. Wall excursion 0.72-1.3 NORMAL Septal motion NORMAL Systolic motion R. Ventricular cavity 1.5-2.0 NORMAL LVEF 60% 50% Paradoxical septal wall motion NORMAL 2-D : 2-D M Mode Echocardiogram was performed using apical four chamber and left parasternal long and short axis views. Mitral, tricuspid and aortic valves appear to be normal. Contractility of the left ventricle seems to be normal, so is the cavity size. Left atrial cavity size and aortic root appear to be normal. There is no pericardial effusion. There is no thrombus noted in the left ventricular or left aortic cavity. No mitral valve prolapse noted. NORMAL FUNCTIONING PROSTHETIC AORTIC VALVE M-MODE: MV: NORMAL AV: NORMAL FUNCTIONING PROSTHETIC AORTIC VALVE TV: NORMAL PV: NORMAL CHAMBER SIZE: NORMAL WALL MOTION: NORMAL PERICARDIUM: NORMAL INTERPRETATION: 1. LEFT VENTRICULAR HYPERTROPHY 2. NORMAL FUNCTIONING PROSTHETIC AORTIC VALVE 3. NORMAL LEFT VENTRICULAR CONTRACTILITY MTDD
== END 2019-01-03 06:14 | disposition home or self-care (01) ==
LOC: CAR 06:13
PROVIDERS: ATTEND Family Medicine
DX: R07.89 Other chest pain (principal)

== ENCOUNTER 2019-01-15 15:21 | Outpatient (CLI) | payer OTHER | END 2019-01-15 15:22 | disposition home or self-care (01) | LOC: RHC-LAB 15:21 → FCC-LAB 15:22 | PROVIDERS: ATTEND Family Medicine | DX: E78.5 Hyperlipidemia, unspecified (principal); J45.909 Unspecified asthma, uncomplicated | CPT/HCPCS: 36415; 80053; 80061; 85025 ==

== ENCOUNTER 2019-04-21 13:51 | Inpatient (IN) ==
--- NOTE | 2019-04-21 14:33 | CT ---
EXAM: CT scan chest without contrast HISTORY: Cough COMPARISON: None. FINDINGS: Contiguous axial images obtained through the thorax without contrast utilizing 5-mm collim ation. Sagittal and coronal reconstructions were imaged and reviewed.. The thoracic inlet is unrema rkable. There is left-sided dual lead pacemaker. The ascending aorta is ectatic measuring 3.7 cm. There are subcentimeter prevascular and pretracheal lymph the heart is normal in size without pericar dial effusion. Sternal wire sutures are noted. Consolidation is seen with the lingula. The right l ramesh is clear. There is no evidence of a pleural effusion.. Bone windows reveals no evidence of lyti c or blastic lesions. IMPRESSION: Prior median sternotomy. Ectatic ascending aorta. Lingular consolidation compatible with pneumonia
--- NOTE | 2019-04-21 14:41 | CT ---
Exam: CT abdomen pelvis without intravenous contrast. Comparison: 07/21/2016. Reason for exam: Pain. Chest pain. FINDINGS: Image interpretation is limited by the lack of intravenous contrast. A partially evaluate d consolidation in the left lower lobe on axial image #1. No pleural effusion in the partially image d lung bases. Image interpretation is limited by the lack of intravenous contrast administration. Stones are seen filling the gallbladder without obvious wall thickening. The liver is lower in attenuation in the spleen. The adrenal glands and pancreas appear grossly unremarkable. No hydronephrosis, hydroureter or nephrolithiasis. The urinary bladder appears grossly unremarkable. No focal small bowel dilatation or transition point. The appendix appears unremarkable. No intra-abdominal free air. Impression: 1. Partially imaged consolidation in the left lower lobe on axial image #1. Imaging findings are mo st consistent with pneumonia. Please see CT examination of the chest performed on the same day for f urther characterization. 2. No hydronephrosis, hydroureter or nephrolithiasis in either kidney.
[2019-04-21] MEDS ORDERED: ROCEPHIN 1 GM/50 ML D5W 1 GM/50 ML BAG IV STA (14:59)
--- NOTE | 2019-04-21 16:20 | CT ---
Exam: CTA chest with contrast Date: 04/21/2019 Comparison: Chest x-ray 10/06/2017 History: Chest pain TECHNIQUE: Axial CTA images through the chest were obtained after the intravenous administration of 75 mL of Omnipaque-350 via the left antecubital IV.MIP images and 3-D surface rendered images were al so obtained. FINDINGS: No thoracic aortic dissection, intramural hematoma, or aneurysm. No pulmonary embolism. There is consolidation in the lingula, which is nonspecific and may represent pneumonia or aspiration . No pleural effusion. No pneumothorax. Enlarged left hilar lymph node measures 1.8 cm and is like ly reactive. No mediastinal or right hilar lymphadenopathy. No axillary lymphadenopathy. The upper abdomen demonstrates multiple gallstones. No acute fractures in the chest. No evidence of osteomye litis - diskitis of the included spine. Impression: 1. No pulmonary embolism or aortic dissection. 2. Nonspecific consolidation in the lingula, which may represent pneumonia or aspiration. 3. Enlarged left hilar lymph node, which may be reactive. Differential diagnosis include metastatic disease of the lumbar.
--- NOTE | 2019-04-21 16:33 | ED.PDOC ---
General ED Provider: Dr. MARÍA ELENA JULIO Chief Complaint: Chest Wall Injury/Pain Stated Complaint: left later chest wall with cough which is entirely reproduceable by palpation of the left chest wall Time Seen by Physician: 14:00 Mode of Arrival: Walk-In Information Source: Patient Nursing and Triage Documentation Reviewed and Agree: Yes Does patient meet sepsis criteria?: No If yes, has appropriate treatment been initiated?: No System Inflammatory Response Syndrome: Not Applicable Sepsis Protocol: For patient's 13 years and over: Temp is 96.8 and below OR 101 and greater Pulse >90 BPM Resp >20/minute Acutely Altered Mental Status Are patient's symptoms suggestive of a new infection, such as: -Pneumonia -Skin, Soft Tissue -Endocarditis -UTI -Bone, Joint Infection -Implantable Device -Acute Abdominal Infection -Wound Infection -Meningitis -Blood Stream Catheter Infection -Unknown Respiratory Complaint Exam Respiratory Complaint/Exam Onset/Duration: 1 week Symptoms Are: Still present Timing: Intermittent Initial Severity: Moderate Current Severity: Mild Location: Chest Character: Reports Non-productive cough and Dry cough Aggravating: Reports URI Alleviating: Reports Upright position Associated Signs and Symptoms: Reports Chest pain (left lateral with cough); Denies Rapid breathing, Dyspnea, Fever, Chills, Pleuritic chest pain, Wheezing, Hemoptysis, Dizziness, Calf pain, Calf swelling, Edema, URI, Nasal congestion, Hoarseness, Sinus discomfort, Vomiting, Sore throat, Weight loss, Decreased oral intake, Increased thirst, Increased appetite and Increased urination History of Healthcare-Acquired Pneumonia: No Related Surgical History: Reports None Pulmonary Embolism Risk Factors: None Cardiac Risk Factors: Reports None Tuberculosis Risk Factors: Reports None Status Asthmaticus Risk Factors: Reports None Home Oxygen Use: No Recent Stress Test: No Recent Echo/LV Function: No Current Antibiotic Use: No Current Asthma Medication Use: No Inadequate Respiratory Effort: No Dysphagia Present: No Stridor Present: No JVD Present: No Accessory Muscle Use: No Retractions: Not Present Diminished Breath Sounds: No Sinus Tenderness: None Grunting Respirations: No Kussmaul Respirations: No Differential Diagnoses: Pneumonia, Pulmonary Embolism and Lower Resp. Infection Quality Indicators For Pneumonia: Blood Cultures-SCU admit, Antibiotics in 6hr- admit, SpO2 assessed, Vital signs and Mental status assessed Non-Traumatic Chest Pain Syncope: EKG Performed Review of Systems Review Of Systems Constitutional: Reports No symptoms Eyes: Reports No symptoms Ears, Nose, Mouth, Throat: Reports No symptoms Respiratory: Reports Cough Cardiac: Reports Chest pain GI: Reports No symptoms : Reports No symptoms Musculoskeletal: Reports No symptoms Skin: Reports No symptoms Neurological: Reports No symptoms Endocrine: Reports No symptoms Hematologic/Lymphatic: Reports No symptoms All Other Systems: Reviewed and Negative [facility] Medical History (Updated 04/21/19 @ 16:33 by MARÍA ELENA JULIO MD) Asthma Chest pain Hyperlipidemia Hypertension Pacemaker Peptic ulcer Shortness of breath Family History Mother Diabetes Alcoholism Cardiac disease Hypertension Grandfather/Grandmother Diabetes Social History Smoking and tobacco status: Former smoker Physical Exam Physical Exam Appearance: Ill-appearing Ill-appearing: Mild Pain Distress: Mild (left chest wall as previously mentioned ) Eyes: JESSICA ENT: Nose normal and Oropharynx normal Neck: Supple Respiratory: Breath sounds diminished, Respirations nonlabored and Rhonchi Cardiovascular: RRR GI/: Soft Musculoskeletal: Normal strength Skin: Warm Neurological: Sensation intact Psychiatric: Affect appropriate Interpretation Radiology Interpretation Radiology Interpretation By: Radiologist Radiology Results: Positive Exam Interpreted: CT Scan (infiltrate left lung) Shoe Maker Rate: Normal Rhythm: Sinus EKG Interpretation Rate: Normal Rhythm: Sinus Ectopy: None Bronson: NL ST Segment: Other Interpretation: RBBB WITH FIRST DEGREE BLOCK . PMD REVIVEWD EKG PAST AND PRESENT EKG Comparison: Other (PRIOR EKG WAS POSTIVE FOR TALLL T WAVES NOT PRESENT NOW ) Re-Evaluation Re-Evaluation Time of Re-Evaluation: 15:00 Status: Unchanged Vital Signs Stable: Yes Appearance: NAD Lungs: Clear Skin: Warm and Dry Neuro: Alert and Oriented X3 CV: RRR Re-Evaluation Time of Re-Evaluation: 16:31 Status: Unchanged Vital Signs Stable: Yes Appearance: NAD Skin: Warm and Dry Neuro: Alert and Oriented X3 CV: RRR Additional Comments: PMD IN ED SAW PT ADMITT TO [facility] Physician Notification Case Discussed Physician Notified: PMD Time of Notification: 16:00 Critical Care Note Critical Care Note Total Time (mins): 0 Course Course Hematology/Chemistry: 04/21/19 14:20 04/21/19 14:20 Orders, Labs, Meds: Lab Review 04/21/19 04/21/19 04/21/19 14:19 14:20 14:20 WBC 14.23 H RBC 5.13 Hgb 15.5 Hct 45.5 MCV 88.7 MCH 30.2 MCHC 34.1 RDW Coeff of Kyara 12.5 Plt Count 193 Immature Gran % (Auto) 0.6 Neut % (Auto) 80.6 Lymph % (Auto) 9.9 L Scurry % (Auto) 8.2 Eos % (Auto) 0.3 Baso % (Auto) 0.4 Immature Gran # (Auto) 0.1 Neut # (Auto) 11.5 H Lymph # (Auto) 1.4 Scurry # (Auto) 1.2 Eos # (Auto) 0.0 Baso # (Auto) 0.1 Puncture Site O2 Saturation ABG pH ABG pCO2 ABG pO2 ABG HCO3 ABG Total CO2 ABG Base Excess FiO2 % Sodium 137.4 Potassium 4.19 Chloride 101.0 Carbon Dioxide 28.9 Anion Gap 11.69 BUN 17.7 Creatinine 1.04 Estimated GFR (MDRD) 74.00 BUN/Creatinine Ratio 17.01 Glucose 103.7 Calcium 9.46 Total Bilirubin 0.88 AST 51.0 ALT 41.3 Alkaline Phosphatase 124.8 Total Creatine Kinase 556.6 H CK-MB (CK-2) 3.640 H CK-MB (CK-2) % 0.6500 Troponin I Total Protein 8.67 H Albumin 4.58 Globulin 4.09 Albumin/Globulin Ratio 1.11 Amylase 67.9 Lipase 118.4 Influ A Molecular Assay Negative by naat Influ B Molecular Assay Negative by naat 04/21/19 04/21/19 14:20 15:01 WBC RBC Hgb Hct MCV MCH MCHC RDW Coeff of Kyara Plt Count Immature Gran % (Auto) Neut % (Auto) Lymph % (Auto) Scurry % (Auto) Eos % (Auto) Baso % (Auto) Immature Gran # (Auto) Neut # (Auto) Lymph # (Auto) Scurry # (Auto) Eos # (Auto) Baso # (Auto) Puncture Site Rbrach O2 Saturation 90.0 L ABG pH 7.385 ABG pCO2 36.6 ABG pO2 58.0 L* ABG HCO3 21.9 L ABG Total CO2 23 ABG Base Excess -3 L FiO2 % 21.0 Sodium Potassium Chloride Carbon Dioxide Anion Gap BUN Creatinine Estimated GFR (MDRD) BUN/Creatinine Ratio Glucose Calcium Total Bilirubin AST ALT Alkaline Phosphatase Total Creatine Kinase CK-MB (CK-2) CK-MB (CK-2) % Troponin I 0.041 Total Protein Albumin Globulin Albumin/Globulin Ratio Amylase Lipase Influ A Molecular Assay Influ B Molecular Assay Orders Category Date Time Status ABG DRAW REQUEST Stat CARDIO 04/21/19 15:01 Completed EKG-(ED ONLY) Stat CARDIO 04/21/19 14:04 Completed EKG-(ED ONLY) Stat CARDIO 04/21/19 15:00 Completed NPO REMINDER: IMAGING ONCE CARE 04/21/19 15:00 Completed ABG Stat LAB 04/21/19 15:01 Completed AMYLASE Stat LAB 04/21/19 14:20 Completed CBC W/ AUTO DIFF Stat LAB 04/21/19 14:20 Completed COMPREHENSIVE METABOLIC PANEL Stat LAB 04/21/19 14:20 Completed CREATINE KINASE Stat LAB 04/21/19 14:20 Completed DRUG SCREEN, URINE, RAPID Stat LAB 04/21/19 15:01 Uncollected FLU A/B MOLECULAR Stat LAB 04/21/19 14:19 Completed LIPASE Stat LAB 04/21/19 14:20 Completed TROPONIN I Stat LAB 04/21/19 14:20 Completed URINALYSIS C & S IF INDICATED Stat LAB 04/21/19 14:05 Uncollected Ceftriaxone/D5w 1 gm Premix [Rocephin 1 gm/50 ml D5w] MEDS 04/21/19 14:59 Discontinued 1 gm in [address] ABD/PEL WO RENAL STONE PROT Stat RADS 04/21/19 14:[address] CHEST PE PROTOCOL Stat RADS 04/21/19 15:[address] CHEST W/O CONTRAST Stat RADS 04/21/19 14:06 Completed Medications Discontinued Medications Generic Name Dose Route Start Last Admin Trade Name Freq PRN Reason Stop Dose Admin CEFTRIAXONE/D5W 1 GM PREMIX 1 gm in 50 mls @ 75 mls/hr 04/21/19 14:59 04/21/19 15:48 Rocephin 1 Gm/50 Ml D5w IV 04/21/19 15:38 75 mls/hr ONCE STA Administration Vital Signs: Temp Pulse Resp BP Pulse Ox 04/21/19 13:51 97.9 F 88 18 159/91 H 98 Discharge Plan Discharge Patient Disposition: ADMITTED INPATIENT Discharge Problem: Chest wall pain, Pneumonia ED Provider: MARÍA ELENA JULIO Condition: Good Interventions: Discharge Last Done: 04/21/19 16:27 ED Care Summary Last Done: 04/21/19 16:27 Discharge Date/Time: 04/21/19 16:30
[2019-04-21] MEDS ORDERED: NORCO 10-325 PO PRN (16:36)
[2019-04-21] MEDS ORDERED: DUONEB NEB PRN (16:36)
[2019-04-21] MEDS: SODIUM CHLORIDE 1,000 ML IV SCH (16:44)
[2019-04-21] MEDS ORDERED: LEVAQUIN 500 MG/100 ML D5W 500 MG/100 ML BAG IV STA (16:55)
[2019-04-21 16:56] VITALS: BMI 25.4
[2019-04-21] MEDS ORDERED: LEVAQUIN 500 MG/100 ML D5W 500 MG/100 ML BAG IV SCH (18:00)
[2019-04-21] MEDS: SOLU-MEDROL 40 MG IVP SCH (20:48)
[2019-04-22] MEDS: SOLU-MEDROL 40 MG IVP SCH ×3 (05:31→21:05)
[2019-04-22] MEDS: PRILOSEC PO SCH (05:32)
[2019-04-22] MEDS ORDERED: FLEXERIL PO PRN (08:41)
[2019-04-22] MEDS ORDERED: ALBUTEROL 0.042% NEB NEB PRN (08:41)
[2019-04-22] MEDS ORDERED: PROAIR HFA IH PRN (08:41)
[2019-04-22] MEDS ORDERED: ULTRAM PO PRN (08:43)
[2019-04-22] MEDS: UMECLIDINIUM 62.5 MCG IH SCH (08:50)
[2019-04-22] MEDS: TORADOL IVP SCH ×3 (08:50→21:06)
[2019-04-22] MEDS: SODIUM CHLORIDE 1,000 ML IV SCH ×2 (08:51→20:58)
[2019-04-22] MEDS ORDERED: PROAIR HFA IH SCH (09:00)
[2019-04-22] MEDS ORDERED: MOBIC PO SCH (09:00)
[2019-04-22] MEDS ORDERED: VITAMIN D PO SCH (09:00)
[2019-04-22] MEDS ORDERED: ASPIRIN CHEWABLE PO SCH (09:00)
[2019-04-22] MEDS ORDERED: MEVACOR PO SCH (09:00)
[2019-04-22] MEDS: SYMBICORT 160-4.5 MCG INHALER IH SCH ×2 (09:16→21:06)
[2019-04-22] MEDS: LEVAQUIN 500 MG/100 ML D5W 500 MG/100 ML BAG IV SCH (09:16)
[2019-04-22] MEDS: DUONEB NEB SCH ×3 (14:18→23:30)
[2019-04-23] MEDS: DUONEB NEB SCH ×4 (04:45→22:33)
[2019-04-23] MEDS: SOLU-MEDROL 40 MG IVP SCH (05:36)
[2019-04-23] MEDS: PRILOSEC PO SCH (05:36)
[2019-04-23] MEDS: TORADOL IVP SCH ×3 (05:36→20:44)
[2019-04-23] MEDS: UMECLIDINIUM 62.5 MCG IH SCH (09:00)
--- NOTE | 2019-04-23 09:01 | PCM.PROG ---
Attending Provider: ATTENDING PROVIDER: [facility] This patient is seen with Carleen Holcomb, Nurse Practitioner. DATE OF SERVICE: 04/23/19 SUBJECTIVE: This 58 year old /WHITE M was hospitalized 04/21/19. The patient states that cough is better. No distress with cough or tenderness with palpation. No new complaints. Liver enzymes elevated as well as WBC. This is new from yesterday. REVIEW OF SYSTEMS: CONSTITUTIONAL: No night sweats. No fatigue, malaise, lethargy. No fever or chills. HEENT: Eyes: No visual changes. No eye pain. No eye discharge. ENT: No runny nose. No epistaxis. No sinus pain. No odynophagia. No congestion. RESPIRATORY: Cough, no congestion. No hemoptysis. No shortness of breath. CARDIOVASCULAR: No angina symptoms. No CHF symptoms. No atypical chest pain for CAD. No palpitations. No orthopnea.. GASTROINTESTINAL: No abdominal pain. No nausea or vomiting. No diarrhea or constipation. No hematemesis. No hematochezia. GENITOURINARY: No urgency. No frequency. No dysuria. No hematuria. No obstructive symptoms. No discharge. No pain. No significant abnormal bleeding. MUSCULOSKELETAL: No musculoskeletal pain; no joint swelling. NEUROLOGICAL: Awake, alert, oriented to time, place and person. No headache. No neck pain. No syncope. No seizures. No dizziness. PSYCHIATRIC: Not anxious. No depression. No suicidal thoughts. No homicidal thoughts. SKIN: No rash. No lesions. No wounds. ENDOCRINE: No unexplained weight loss. No weight gain. HEMATOLOGIC/LYMPHATIC: No anemia. No purpura. No petechiae. No prolonged or excessive bleeding. No palpable lymph nodes. PHYSICAL EXAMINATION: GENERAL: The patient is awake, alert and oriented, lying in bed in no distress. VITAL SIGNS: Temperature 97.2 F, Pulse 92, Respiratory Rate 14, BP 143/87, Pulse Ox 96% HEENT: Head normocephalic, atraumatic. Eyes: Extraocular muscles are intact. Pupils are equal, round and reactive to light and accommodation. Ears: No lesions. Nose appeared normal. Throat: No exudate or erythema. NECK: Supple. No JVD, no carotid bruit. No lymphadenopathy or thyromegaly. LUNGS: Diminished breath sounds. Clear to auscultation. Percussion note normal. Chest symmetrical. HEART: S1, S2, no S3. No murmurs. No cyanosis or clubbing. No ascites. Pulses: Dorsalis pedis and posterior tibial pulses +1 to +2 both sides. ABDOMEN: Soft. Non-tender. Bowel sounds active. No CVA tenderness. No mass felt. EXTREMITIES: No edema. Full range of motion of all extremities, equal. NEUROLOGIC: No focal deficit. Cranial nerves II through XII are grossly intact. No headache, no double vision or headache. SKIN: Not dry. Intact. Turgor-normal. LYMPHATIC: No palpable lymph nodes/no lymphedema. MUSCULOSKELETAL: Normal joints with no swelling. Muscle tone is normal. LAB REVIEW: 04/23/19 05:00 04/23/19 05:00 04/23/19 05:00: Sodium 140.8, Potassium 3.79, Chloride 107.3 H, Carbon Dioxide 25.1, Anion Gap 12.19, BUN 22.3 H, Creatinine 0.94, Estimated GFR (MDRD) 83.00, BUN/Creatinine Ratio 23.72, Glucose 174.4 H, Calcium 9.22, Total Bilirubin 0.31, AST 132.4 H D, ALT 130.0 H D, Alkaline Phosphatase 137.9 H, Total Protein 7.66, Albumin 3.93, Globulin 3.73, Albumin/Globulin Ratio 1.05 04/23/19 05:00: WBC 25.12 H D, RBC 4.96, Hgb 14.9, Hct 43.7, MCV 88.1, MCH 30.0, MCHC 34.1, RDW Coeff of Kyara 12.5, Plt Count 225, Immature Gran % (Auto) 0.5, Neut % (Auto) 93.0, Lymph % (Auto) 3.5 L, [place] % (Auto) 2.8, Eos % (Auto) 0.0, Baso % (Auto) 0.2, Immature Gran # (Auto) 0.1, Neut # (Auto) 23.4 H, Lymph # (Auto) 0.9, [place] # (Auto) 0.7, Eos # (Auto) 0.0, Baso # (Auto) 0.0 ASSESSMENT: Please see below. 1. Left sided pneumonia 2. Left chest wall pain 3. Elevated liver function 4. Elevated WBC PLAN: 1. Repeat CBC 2. Hold Lovastatin 3. Discontinue IV fluids 4. Hepatitis panel 5. Ultrasounds of the liver Plan and coordination of the patient's care discussed in the presence of Document Management Technician and nurse. SCRIBED BY: Carly FLANAGAN scribed while in presence of service performed by Dr. Melendez/Carleen Holcomb APRN on 04/23/19 ([id number])
--- NOTE | 2019-04-23 09:14 | HP ---
DATE OF SERVICE: 04/21/19 REASON FOR HOSPITALIZATION: Chest pain. HISTORY OF PRESENT ILLNESS: 57-year-old white male came to the Emergency Room with complaint of having left subcostal lower chest pain mainly on deep breathing, sharp, shooting of nearly 5 to 6 days duration. I was called by the ER physician, Dr. Miramontes. On further questioning in the Emergency Room by me the patient gave history of having aortic valve replacement 2015 at [facility] in [place] along with pacemaker placement a few days later at the same hospital. The patient is being followed by Dr. Marshal Tran. According to the patient, he hasn't seen a doctor for the past several months. 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 No night sweats. No malaise, lethargy. No fever or chills. HEENT: Eyes: No visual changes. No eye pain. No eye discharge. ENT: No runny nose. No epistaxis. No sinus pain. No sore throat. No odynophagia. No ear pain. No congestion. RESPIRATORY: Mild cough, pleuritic type of pain subcostal area, left side. No hemoptysis. No shortness of breath. CARDIOVASCULAR: Chest pain on deep breathing, subcostal, left-sided. Also gives another kind of chest pain which he says comes with walking more than 1/2 mile, is very vague about it. No CHF symptoms. No palpitations. No PND. No orthopnea. GASTROINTESTINAL: No abdominal pain. No nausea or vomiting. No diarrhea or constipation. No hematemesis. No hematochezia. GENITOURINARY: No urgency. No frequency. No dysuria. No hematuria. No obstructive symptoms. No discharge. No pain. No significant abnormal bleeding. MUSCULOSKELETAL: No musculoskeletal pain. No joint swelling. No arthritis. NEUROLOGICAL: No headache. No neck pain. No syncope. No seizures. No dizziness. PSYCHIATRIC: Not anxious. No depression. No suicidal thoughts. No homicidal thoughts. SKIN: No rash. No lesions. No wounds. ENDOCRINE: No unexplained weight loss. No weight gain. HEMATOLOGIC/LYMPHATIC: No anemia. No purpura. No petechiae. No prolonged or excessive bleeding. No palpable lymph nodes. PERSONAL/FAMILY/SOCIAL HISTORY: The patient is , lives with the , smokes 1/2 pack a day for many years. No alcohol abuse. 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 The patient does all activities of daily living, drives car. MEDICATIONS: (HOME) Albuterol 1-2 puffs q.4-6 p.r.n. Aspirin 81 mg p.o. q.day Symbicort two puffs INH b.i.d. Vitamin D3 p.o. two times per week Cyclobenzaprine 10 mg p.o. b.i.d. p.r.n. Lovastatin 20 mg p.o. daily Meloxicam 15 mg p.o. daily Pantoprazole 20 mg p.o. daily Tramadol 50 mg p.o. b.i.d. p.r.n. Incruse Ellipta 62.5 mcg INH ALLERGIES: NKDA PHYSICAL EXAMINATION: GENERAL: The patient is oriented to time, place and person. VITAL SIGNS: Temperature 98.4, pulse 80, respiratory rate 16, blood pressure 130/80. HEENT: Head normocephalic, atraumatic. Face symmetrical. Eyes: Extraocular muscles are intact. Pupils are equal, round and reactive to light and accommodation. Ears: No lesions. Nose appeared normal. Throat: No exudate or erythema. NECK: Supple. No JVD, no carotid bruit. No lymphadenopathy or thyromegaly. LUNGS: On auscultation decreased breath sounds bilaterally. Clear to auscultation. Percussion note normal. Chest symmetrical. HEART: PMI not palpable on auscultation. S1, S2 (loud), no S3. Grade I/ systolic murmur. No cyanosis or clubbing. No ascites. Pulses: Dorsalis pedis and posterior tibial pulses +1 bilaterally. ABDOMEN: Soft. Nontender. No ascites. Liver/spleen not palpable. Bowel sounds active. No CVA tenderness. No mass felt. EXTREMITIES: No edema. Full range of motion of all extremities, equal. NEUROLOGIC: Deep tendon reflexes, motor, sensory all normal. No focal deficit. Cranial nerves II through XII are grossly intact. No headache, no double vision or headache. SKIN: Not dry. Intact. Turgor - almost normal. LYMPHATIC: No palpable lymph nodes/no lymphedema. MUSCULOSKELETAL: Normal joints with no swelling. Muscle tone is normal. EKG sinus rhythm, right bundle branch type of pattern. LVH. CBC, CMP all negative. CK level close to 500 to 600 with normal MB. Troponin negative. The patient had a CT scan of the chest which showed lingular infiltrate or consolidation or atelectasis. The patient's chest CT PE protochol pending. Oxygen saturation 98% on room air. ABG pending. ASSESSMENT: 1. CHEST PAIN SEEMS TO BE PLEURITIC TYPE WITH LINGULAR LOBE CONSOLIDATION, COULD BE EARLY PNEUMONIA. 2. COPD WITH HISTORY OF SMOKING. 3. AORTIC VALVE REPLACEMENT 2014. 4. PACEMAKER PLACEMENT. PLAN: 1. Admit to Special [facility]. 2. Routine telemetry orders which include serial EKGs, cardiac markers. 3. Continue oral home medications. 4. Advise to quit smoking, counseling done. 5. Advise to followup with primary care on a regular basis. 6. IV Rocephin 1 gm q.24hr. The patient is not allergic to antibiotics. 7. IV steroids. 8. Toradol 30 mg IV q.8 for pleuritic pain p.r.n. 9. The patient will undergo echocardiogram to evaluate LV function and also aortic valvular prosthesis and LV contractility. 10. The patient may need stress echo Sestamibi- Sestamibi especially because of the patient's abnormal EKG and evaluate the patient's chest pain which has two components. CONDITION: Stable. TIME SPENT: More than 70 minutes. MTDD
--- NOTE | 2019-04-23 09:21 | PN ---
DATE OF SERVICE: 04/22/19 SUBJECTIVE: The patient was seen and examined today. The patient's condition has improved. No chest pain. The patient's pain is pleuritic type. He has atelectasis of the lingular lobe. The patient is coughing much less. PHYSICAL EXAMINATION: HEENT: Head normocephalic, atraumatic. Eyes: Extraocular muscles are intact. Pupils are equal, round and reactive to light and accommodation. Ears: No lesions. Nose appeared normal. Throat: No exudate or erythema. NECK: Supple. No JVD, no carotid bruit. No lymphadenopathy or thyromegaly. LUNGS: Decreased breath sounds but clear to auscultation. Percussion note normal. Chest symmetrical. HEART: S1, S2, no S3. No murmurs. No cyanosis or clubbing. No ascites. Pulses: Dorsalis pedis and posterior tibial pulses +1 to +2 bilaterally. ABDOMEN: Soft. Nontender. Bowel sounds active. No CVA tenderness. No mass felt. EXTREMITIES: No edema. Full range of motion of all extremities, equal. NEUROLOGIC: No focal deficit. Cranial nerves II through XII are grossly intact. No headache, no double vision or headache. SKIN: Not dry. Intact. Turgor - normal. LYMPHATIC: No palpable lymph nodes/no lymphedema. MUSCULOSKELETAL: Normal joints with no swelling. Muscle tone is normal. EKG sinus rhythm, right bundle branch block pattern. Cardiac markers negative. ASSESSMENT: 1. Chest pain, noncardiac. 2. Pleuritic pain with pleurisy, possibility of lingular lobe pneumonia. 3. Chronic lung disease. 4. History of smoking. 5. Aortic valve replacement. PLAN: 1. Continue the same treatment with antibiotics, steroids, Toradol IV. 2. Will maybe do stress echo when the condition is stable. So far the chest pain is noncardiac, likely from pleurisy. TIME SPENT: More than 30 minutes. Plan and coordination of the patient's care discussed in the presence of nurse. JEFF
[2019-04-23] MEDS: LEVAQUIN 500 MG/100 ML D5W 500 MG/100 ML BAG IV SCH (10:01)
[2019-04-23] MEDS: SYMBICORT 160-4.5 MCG INHALER IH SCH ×2 (11:08→20:44)
[2019-04-23] MEDS: ASPIRIN CHEWABLE PO SCH (11:08)
--- NOTE | 2019-04-23 11:22 | US ---
EXAM: Right upper quadrant abdominal ultrasound History: Right upper quadrant abdominal pain. Comparison: CT abdomen pelvis 04/21/2019 Technique: Multiple sonographic images through the abdomen were obtained. Color duplex Doppler was used to interrogate vascular flow. Findings: No abdominal ascites. No focal liver lesions. There is antegrade flow within the main po rtal vein. The liver is slightly echogenic compared to the adjacent right renal cortex. Multiple sh adowing gallstones. Gallbladder wall is mildly thickened. Common bile duct measures 0.4 cm in calib er. Limited visualization of the right kidney demonstrates no abnormality Impression: Cholelithiasis and mild gallbladder wall thickening
--- NOTE | 2019-04-23 11:33 | PN ---
DATE OF SERVICE: 04/23/19 SUBJECTIVE: The patient was seen and examined this morning with nurse practitioner. The patient's condition is stable. His other problem seems to be abnormal liver profile so will get ultrasound of the liver and also hepatitis profile. Statin will be discontinued. The patient is going to stay one more day and have stress echo/Sestamibi and is reluctant about it at the present time. The patient is stable. TIME SPENT: More than 30 minutes. Plan and coordination of the patient's care discussed in the presence of nurse. JEFF
[2019-04-23] MEDS: PREDNISONE PO SCH (16:01)
[2019-04-24] MEDS: DUONEB NEB SCH ×4 (04:40→23:05)
[2019-04-24] MEDS: TORADOL IVP SCH (05:46)
[2019-04-24] MEDS: PRILOSEC PO SCH (05:46)
[2019-04-24] MEDS: LEVAQUIN 500 MG/100 ML D5W 500 MG/100 ML BAG IV SCH (08:59)
[2019-04-24] MEDS: PREDNISONE PO SCH (09:00)
[2019-04-24] MEDS: ASPIRIN CHEWABLE PO SCH (09:00)
[2019-04-24] MEDS: SYMBICORT 160-4.5 MCG INHALER IH SCH ×2 (09:02→20:46)
[2019-04-24] MEDS: UMECLIDINIUM 62.5 MCG IH SCH (11:39)
[2019-04-25] MEDS: DUONEB NEB SCH ×2 (04:40→12:36)
[2019-04-25] MEDS: PRILOSEC PO SCH (05:46)
[2019-04-25] MEDS: SYMBICORT 160-4.5 MCG INHALER IH SCH (09:31)
[2019-04-25] MEDS: ASPIRIN CHEWABLE PO SCH (09:31)
[2019-04-25] MEDS: PREDNISONE PO SCH (09:31)
--- NOTE | 2019-04-25 09:50 | PCM.PROG ---
Attending Provider: ATTENDING PROVIDER[facility] This patient is seen with Carleen Holcomb, Nurse Practitioner. DATE OF SERVICE: 04/25/19 SUBJECTIVE: This 58 year old /WHITE M was hospitalized 04/21/19. The patient is doing well. Cough is significantly better and experiencing no pain. AST is slightly improved and ALT slightly worse. Hepatitis panel is negative. REVIEW OF SYSTEMS: CONSTITUTIONAL: No night sweats. No fatigue, malaise, lethargy. No fever or chills. HEENT: Eyes: No visual changes. No eye pain. No eye discharge. ENT: No runny nose. No epistaxis. No sinus pain. No odynophagia. No congestion. RESPIRATORY: Cough, no congestion. No hemoptysis. No shortness of breath. CARDIOVASCULAR: No angina symptoms. No CHF symptoms. No atypical chest pain for CAD. No palpitations. No orthopnea.. GASTROINTESTINAL: No abdominal pain. No nausea or vomiting. No diarrhea or constipation. No hematemesis. No hematochezia. GENITOURINARY: No urgency. No frequency. No dysuria. No hematuria. No obstructive symptoms. No discharge. No pain. No significant abnormal bleeding. MUSCULOSKELETAL: No musculoskeletal pain; no joint swelling. NEUROLOGICAL: Awake, alert, oriented to time, place and person. No headache. No neck pain. No syncope. No seizures. No dizziness. PSYCHIATRIC: Not anxious. No depression. No suicidal thoughts. No homicidal thoughts. SKIN: No rash. No lesions. No wounds. ENDOCRINE: No unexplained weight loss. No weight gain. HEMATOLOGIC/LYMPHATIC: No anemia. No purpura. No petechiae. No prolonged or excessive bleeding. No palpable lymph nodes. PHYSICAL EXAMINATION: GENERAL: The patient is awake, alert and oriented, lying in bed in no distress. VITAL SIGNS: Temperature 98.6 F, Pulse 81, Respiratory Rate 18, BP 157/76, Pulse Ox 95% HEENT: Head normocephalic, atraumatic. Eyes: Extraocular muscles are intact. Pupils are equal, round and reactive to light and accommodation. Ears: No lesions. Nose appeared normal. Throat: No exudate or erythema. NECK: Supple. No JVD, no carotid bruit. No lymphadenopathy or thyromegaly. LUNGS: Diminished breath sounds. Clear to auscultation. Percussion note normal. Chest symmetrical. HEART: S1, S2, no S3. Grade I murmur. No cyanosis or clubbing. No ascites. Pulses: Dorsalis pedis and posterior tibial pulses +1 to +2 both sides. ABDOMEN: Soft. Non-tender. Bowel sounds active. No CVA tenderness. No mass felt. EXTREMITIES: No edema. Full range of motion of all extremities, equal. NEUROLOGIC: No focal deficit. Cranial nerves II through XII are grossly intact. No headache, no double vision or headache. SKIN: Not dry. Intact. Turgor-normal. LYMPHATIC: No palpable lymph nodes/no lymphedema. MUSCULOSKELETAL: Normal joints with no swelling. Muscle tone is normal. LAB REVIEW: 04/25/19 04:47 04/25/19 04:47 04/25/19 04:47: Sodium 140.4, Potassium 4.32, Chloride 105.5, Carbon Dioxide 29.2, Anion Gap 10.02, BUN 20.4 H, Creatinine 0.85, Estimated GFR (MDRD) 93.00, BUN/Creatinine Ratio 24.00, Glucose 91.5, Calcium 8.86, Total Bilirubin 0.29, AST 157.2 H D, ALT 306.5 H D, Alkaline Phosphatase 115.3, Total Protein 6.63, Albumin 3.48 L, Globulin 3.15, Albumin/Globulin Ratio 1.10 04/25/19 04:47: WBC 10.71 H D, RBC 4.58 L, Hgb 13.6 L, Hct 40.8 L, MCV 89.1, MCH 29.7, MCHC 33.3, RDW Coeff of Kyara 13.2, Plt Count 262, Immature Gran % (Auto) 4.9, Neut % (Auto) 65.5, Lymph % (Auto) 21.2, [facility] % (Auto) 7.7, Eos % (Auto) 0.2, Baso % (Auto) 0.5, Immature Gran # (Auto) 0.5, Neut # (Auto) 7.0 H, Lymph # (Auto) 2.3, [facility] # (Auto) 0.8, Eos # (Auto) 0.0, Baso # (Auto) 0.1 ASSESSMENT: Please see below. 1. Lingular pneumonia, improved 2. Elevated liver function likely related to Cholelithiasis 3. Elevated WBC PLAN: 1. Discharge home 2. Levaquin 500mg daily for 5 days 3. Prednisone 10mg daily for 3 days 4. Keep followup with Dr. Tran tomorrow 5. No Lovastatin or Meloxicam Plan and coordination of the patient's care discussed in the presence of Credit And Collections Analyst and nurse. SCRIBED BY: Ricardo FLANAGANist scribed while in presence of service performed by Dr. Gallego/Carleen Holcomb APRN on 04/25/19 ([id number])
[2019-04-25] MEDS: UMECLIDINIUM 62.5 MCG IH SCH (11:45)
--- NOTE | 2019-04-25 13:47 | CM.DICTOOL ---
ADMISSION: 04/21/19 15:24 DISCHARGE: APRIL 25, 2019 DATE OF SERVICE: 04/25/19 FINAL DIAGNOSIS PNEUMONIA,LINGULAR LOBE HEPATITIS, ETIOLOGY UNKNOWN HISTORY OF: HYPERTENSION ASTHMA/ SMOKER GERD DYSLIPIDEMIA OSTEOARTHRITIS DEGENERATIVE CHANGES IN SPINE CHOLELITHIASIS PER CT 04/21/2019 ENLARGED LEFT HILAR LYMPH NODE PER CT 04/21/2019 PACEMAKER INSERTION AORTIC VALVE REPLACEMENT ECHOCARDIOGRAM: 01/04/2019 LVH LVEF 50% NORMAL FUNCTIONING PROSTHETIC AORTIC VALVE ( ECHO 04/2019) STRESS ECHO 05/11/2019 NO EVIDENCE OF ISCHEMIA LAST VITALS Temp Pulse Resp BP Pulse Ox 98.6 F 81 18 157/76 H 95 04/25/19 05:23 04/25/19 05:23 04/25/19 05:23 04/25/19 05:23 04/25/19 05:23 TAKE THESE MEDICATIONS AT HOME Hydrocodone Bitart/Acetaminophen ([place] 10-325) 1 tab PO Q6HR PRN PRN Reason: Analgesia Last Admin: 04/21/19 17:11 Dose: 1 tab Documented by: Albuterol Sulfate (Albuterol 0.042% Neb) 1.25 mg NEB Q4-6H PRN PRN Reason: shortness of air Albuterol Sulfate (Proair Hfa) 1 - 2 puff IH Q4-6H PRN PRN Reason: shortness of air Albuterol/Ipratropium (Duoneb) 3 ml NEB RTQ6H [facility] Last Admin: 04/25/19 04:40 Dose: 3 ml Documented by: Aspirin (Aspirin Chewable) 81 mg PO DAILYWM [facility] Last Admin: 04/25/19 09:31 Dose: 81 mg Documented by: Budesonide/Formoterol Fumarate (Symbicort 160-4.5 Mcg Inhaler) 2 puff IH BID [facility] Last Admin: 04/25/19 09:31 Dose: 2 puff Documented by: Cholecalciferol (Vitamin D) 2,000 unit PO 2 TIMES PER WEEK [facility] Cyclobenzaprine HCl (Flexeril) 10 mg PO BID PRN PRN Reason: Pain Non-Formulary Medication (Umeclidinium [Incruse Ellipta]) 62.5 mcg IH DAILY [facility] Last Admin: 04/24/19 11:39 Dose: Not Given Documented by: Omeprazole (Prilosec) 20 mg PO DAILY@0630 [facility] Last Admin: 04/25/19 05:46 Dose: 20 mg Documented by: Prednisone (Prednisone) 10 mg PO DAILYWM [facility](START 04/26/2019 X 3 MORE DAYS ) Last Admin: 04/25/19 09:31 Dose: 10 mg Tramadol HCl (Ultram) 50 mg PO BID PRN PRN Reason: Pain LEVAQUIN 500 MG PO DAILY X 5 DAYS ALLERGIES No Known Allergies Allergy (Verified 04/21/19 14:21) DISCONTINUED MEDICATIONS MOBIC LOVASTATIN NEW PRESCRIPTIONS: LEVAQUIN 500 MG PO DAILY X 5 DAYS ( START TODAY) PREDNISONE 10 MG PO DAILY X 3 DAYS ( START 04/26/2019) SMOKING: INSTRUCT ON SMOKING CESSATION DISEASE SPECIFIC EDUCATION: PNEUMONIA SMOKING CESSATION LAB REVIEW: 04/25/19 04:47 04/25/19 04:47 04/25/19 04:47: Sodium 140.4, Potassium 4.32, Chloride 105.5, Carbon Dioxide 29.2, Anion Gap 10.02, BUN 20.4 H, Creatinine 0.85, Estimated GFR (MDRD) 93.00, BUN/Creatinine Ratio 24.00, Glucose 91.5, Calcium 8.86, Total Bilirubin 0.29, AST 157.2 H D, ALT 306.5 H D, Alkaline Phosphatase 115.3, Total Protein 6.63, Albumin 3.48 L, Globulin 3.15, Albumin/Globulin Ratio 1.10 04/25/19 04:47: WBC 10.71 H D, RBC 4.58 L, Hgb 13.6 L, Hct 40.8 L, MCV 89.1, MCH 29.7, MCHC 33.3, RDW Coeff of [place]ara 13.2, Plt Count 262, Immature Gran % (Auto) 4.9, Neut % (Auto) 65.5, Lymph % (Auto) 21.2, [place] % (Auto) 7.7, Eos % (Auto) 0 .2, Baso % (Auto) 0.5, Immature Gran # (Auto) 0.5, Neut # (Auto) 7.0 H, Lymph # (Auto) 2.3, [place] # (Auto) 0.8, Eos # (Auto) 0.0, Baso # (Auto) 0.1 PLAN: DISCHARGE HOME DIET: REGULAR ACTIVITY : UP AD SUSANA. AVOID STRENUOUS ACTIVITY. TAKE FREQUENT REST PERIODS FOLLOW UP WITH DR. MILLS AT THE CLINIC 04/26/2019 @ 0830 ( APPOINTMENT MADE) CODE STATUS: FULL CODE MR. SOLER REMAINS ALERT AND ORIENTED X 4 WITH A BLANK AFFECT AND NOT VERY TALKATIVE. NO DISTRESS. LUNGS CLEAR. HAS BEEN TREATED FOR PNEUMONIA PER IV ANTIBIOTICS AND STERIODS AND TOLERATED WELL. NO PAIN NOW. HEPATIC ENZYMES REMAIN ELEVATED. MOBIC AND LOVASTATIN WAS DISCONTINUED AND NOT TO TAKE AT HOME EITHER. REMAINS AFEBRILE. APPETITE GOOD. UP AD SUSANA. ROUND ABDOMEN, BUT MR. SOLER STATES NO ABDOMINAL DISCOMFORT, THOUGH HAS HAD RT UPPER QUADRANT PAIN AND DISCOMFORT IN THE PAST. RT ABDOMINAL ULTRASOUND 04/23/2019 (COMPARED TO CT ABD/PELVIS 04/21/19) : CHOLELITHIASIS AND MILD GALLBLADDER WALL THICKENING. MD ALVARO GUEVARA, OPERATIONAL TEST MECHANIC
--- NOTE | 2019-04-25 13:53 | ECHO2D ---
Date of Exam: 04/24/19 Ordering Physician: DR. CHUYITA MELENDEZ--HOSPITALIST Room #: 119 Reason for Echo: CHEST PAIN, PNEUMONIA, AORTIC VALVE REPLACED 2014 M-Mode Normal Adult Results LV Dimensions Normal Adult Results AoV Opening excursions >1.6 1.5 LVEDD-base- 3.5-5.8 5.9 Ao root dimensions 2.0-3.7 3.6 LVESD-base- 3.1-4.6 L. Atrium dimensions 1.9-3.8 4.2 Post. Wall thickness 0.8-1.1 1.2 IV septum (thickness) 0.7-1.2 1.2 Post. Wall excursion 0.72-1.3 NORMAL Septal motion NORMAL Systolic motion R. Ventricular cavity 1.5-2.0 NORMAL LVEF 60% 60% Paradoxical septal wall motion NORMAL 2-D : PROSTHETIC AORTIC VALVE WORKING NORMAL--MILDLY ENLARGED LEFT ATRIAL CAVITY, MITRAL VALVE PROLAPSE WITH APICAL FOUR CHAMBER AND LEFT PARASTERNAL LONG AXIS--NO EFFUSION, NO THROMBUS M-MODE: MV: MITRAL VALVE PROLAPSE NOTED LATE SYSTOLIC AV: PROSTHETIC AORTIC VALVE --WORKING NORMAL TV: NORMAL PV: NORMAL CHAMBER SIZE: MILDLY ENLARGED LEFT ATRIAL CAVITY WALL MOTION: NORMAL PERICARDIUM: NORMAL INTERPRETATION: 1. MITRAL VALVE PROLAPSE LATE SYSTOLIC 2. NORMALLY FUNCTIONING AORTIC PROSTHETIC VALVE--COMPARED WITH ECHO 12/31 3. MILDLY ENLARGED LEFT ATRIAL CAVITY 4. BORDERLINE LEFT VENTRICULAR HYPERTROPHY 5. NORMAL LEFT VENTRICULAR CONTRACTILITY ^6 L V Cavity eniarged MTDD
[2019-04-25 13:56] VITALS: BP 143/90; TEMP 98.4
--- NOTE | 2019-04-26 10:54 | DS ---
DATE OF SERVICE: 04/25/19 FINAL DIAGNOSIS: 1. PNEUMONIA,LINGULAR LOBE 2. HEPATITIS, ETIOLOGY UNKNOWN 3. HISTORY OF HYPERTENSION 4. ASTHMA/ SMOKER 5. GERD 6. DYSLIPIDEMIA 7. OSTEOARTHRITIS 8. DEGENERATIVE CHANGES IN SPINE 9. CHOLEL[address] PER [address] 04/21/2019 10.ENLARGED LEFT HILAR LYMPH NODE PER CT 04/21/2019 11.PACEMAKER INSERTION 12.AORTIC VALVE REPLACEMENT 13.ECHOCARDIOGRAM: 01/04/2019, LVH, LVEF 50% and NORMAL FUNCTIONING PROSTHETIC AORTIC VALVE ( ECHO 04/2019) 14.STRESS ECHO 05/11/2019 NO EVIDENCE OF ISCHEMIA LAST VITALS: Temp Pulse Resp BP Pulse Ox 98.6 F 81 18 157/76 H 95 04/25/19 05:23 04/25/19 05:23 04/25/19 05:23 04/25/19 05:23 04/25/19 05:23 TAKE THESE MEDICATIONS AT HOME: Hydrocodone Bitart/Acetaminophen ([place] 10-325) 1 tab PO Q6HR PRN PRN Reason: Analgesia Last Admin: 04/21/19 17:11 Dose: 1 tab Documented by: Albuterol Sulfate (Albuterol 0.042% Neb) 1.25 mg NEB Q4-6H PRN PRN Reason: shortness of air Albuterol Sulfate (Proair Hfa) 1 - 2 puff IH Q4-6H PRN PRN Reason: shortness of air Albuterol/Ipratropium (Duoneb) 3 ml NEB RTQ6H [facility] Last Admin: 04/25/19 04:40 Dose: 3 ml Documented by: Aspirin (Aspirin Chewable) 81 mg PO DAILYWM [facility] Last Admin: 04/25/19 09:31 Dose: 81 mg Documented by: Budesonide/Formoterol Fumarate (Symbicort 160-4.5 Mcg Inhaler) 2 puff IH BID [facility] Last Admin: 04/25/19 09:31 Dose: 2 puff Documented by: Cholecalciferol (Vitamin D) 2,000 unit PO 2 TIMES PER WEEK [facility] Cyclobenzaprine HCl (Flexeril) 10 mg PO BID PRN PRN Reason: Pain Non-Formulary Medication (Umeclidinium [Incruse Ellipta]) 62.5 mcg IH DAILY [facility] Last Admin: 04/24/19 11:39 Dose: Not Given Documented by: Omeprazole (Prilosec) 20 mg PO DAILY@0630 [facility] Last Admin: 04/25/19 05:46 Dose: 20 mg Documented by: Prednisone (Prednisone) 10 mg PO DAILYWM [facility](START 04/26/2019 X 3 MORE DAYS ) Last Admin: 04/25/19 09:31 Dose: 10 mg Tramadol HCl (Ultram) 50 mg PO BID PRN PRN Reason: Pain LEVAQUIN 500 MG PO DAILY X 5 DAYS ALLERGIES: No Known Allergies Allergy (Verified 04/21/19 14:21) DISCONTINUED MEDICATIONS: MOBIC LOVASTATIN NEW PRESCRIPTIONS: LEVAQUIN 500 MG PO DAILY X 5 DAYS ( START TODAY) PREDNISONE 10 MG PO DAILY X 3 DAYS ( START 04/26/2019) SMOKING: INSTRUCT ON SMOKING CESSATION DISEASE SPECIFIC EDUCATION: PNEUMONIA SMOKING CESSATION DISCHARGE INSTRUCTIONS: DISCHARGE HOME. FOLLOW UP WITH DR. MILLS AT THE CLINIC 04/26/2019 @ 0830 ( APPOINTMENT MADE). CODE STATUS: FULL CODE. DIET: REGULAR ACTIVITY: UP AD SUSANA. AVOID STRENUOUS ACTIVITY. TAKE FREQUENT REST PERIODS HOSPITAL COURSE: 58 year old white male hospitalized with left sided chest pain which was subcostal, atypical for coronary insufficiency. The patient on CT scan of the chest showed lingual lobe infiltrate likely pneumonitis. The patient was kept in the hospital and treated with Levofloxacin IV for pneumonia and Toradol IV for his pleuritic pain. The patient's pain subsided. Cardiovascular status was stable. His echo showed normal valvular structure, aortic valve prosthetic was normal with normal LV contractility with mildly enlarged LA cavity. The patient during the stay in the hospital was noted to have rise in the SGPT and SGOT which stabilized at the time of discharge on a higher level than the day of admission. His liver profile was normal. The patient's elevation of transaminases could be from IV Toradol and or the use of statins and or nonsteroidal anti-inflammatory Mobic with the remote possibility of cholelithiasis. The patient was practically asymptomatic for cholelithiasis. Appetite is poor, it has been negative. The patient has been asymptomatic from his liver abnormality. In any case the patient was discharged home to be followed by Dr. Pacheco. The patient is up and about with normal appetite and strongly advised to quite smoking. His cardiovascular status was stable. Counseling for smoking done. Discharge medications are Levaquin and Prednisone. TIME SPENT: More than 60 minutes. MTDD
--- NOTE | 2019-04-26 10:56 | PN ---
04/21/19: LEVEL 5 04/22/19: INTERMEDIATE 04/23/19: INTERMEDIATE 04/24/19: INTERMEDIATE 04/25/19: D IN DISCHARGE MTDD
--- NOTE | 2019-04-30 10:51 | PN ---
DATE OF SERVICE: 04/24/19 SUBJECTIVE: The patient examined this morning. The patient's pneumonia seems to be resolving. There is no pleuritic pain. Left-sided pleuritic pain has resolved. The patient is feeling better. The appetite is improving. REVIEW OF SYSTEMS: CONSTITUTIONAL: Weakness. No night sweats. No fatigue, malaise, lethargy. No fever or chills. HEENT: Eyes: No visual changes. No eye pain. No eye discharge. ENT: No runny nose. No epistaxis. No sinus pain. No sore throat. No odynophagia. No congestion. RESPIRATORY: No cough, no congestion. No hemoptysis. No shortness of breath. CARDIOVASCULAR: No angina symptoms. No CHF symptoms. No atypical chest pain for CAD. No palpitations. No PND. No orthopnea. GASTROINTESTINAL: No abdominal pain. No nausea or vomiting. No diarrhea or constipation. No hematemesis. No hematochezia. GENITOURINARY: No urgency. No frequency. No dysuria. No hematuria. No obstructive symptoms. No discharge. No pain. No significant abnormal bleeding. MUSCULOSKELETAL: No musculoskeletal pain; no joint swelling. NEUROLOGICAL: No headache. No neck pain. No syncope. No seizures. No dizziness. PSYCHIATRIC: Not anxious. No depression. No suicidal thoughts. No homicidal thoughts. SKIN: No rash. No lesions. No wounds. ENDOCRINE: No unexplained weight loss. No weight gain. HEMATOLOGIC/LYMPHATIC: No anemia. No purpura. No petechiae. No prolonged or excessive bleeding. No palpable lymph nodes. PHYSICAL EXAMINATION: VITAL SIGNS: Temperature 97.6, pulse 78, respiratory rate 18, blood pressure 126/67, pulse ox 97%. HEENT: Head normocephalic, atraumatic. Eyes: Extraocular muscles are intact. Pupils are equal, round and reactive to light and accommodation. Ears: No lesions. Nose appeared normal. Throat: No exudate or erythema. NECK: Supple. No JVD, no carotid bruit. No lymphadenopathy or thyromegaly. LUNGS: Decreased breath sounds but clear to auscultation. Percussion note normal. Chest symmetrical. HEART: S1, S2, no S3. Grade I/ systolic murmur. No cyanosis or clubbing. No ascites. Pulses: Dorsalis pedis and posterior tibial pulses +1 to +2 bilaterally. ABDOMEN: Soft. Right upper quadrant nontender. Bowel sounds active. No CVA tenderness. No mass felt. EXTREMITIES: No edema. Full range of motion of all extremities, equal. NEUROLOGIC: No focal deficit. Cranial nerves II through XII are grossly intact. No headache, no double vision or headache. SKIN: Not dry. Intact. Turgor - normal. LYMPHATIC: No palpable lymph nodes/no lymphedema. MUSCULOSKELETAL: Normal joints with no swelling. Muscle tone is normal. LABS: Hemoglobin 13, hematocrit 38, WBC 16,000, normal differential. Creatinine 0.9, BUN 21, potassium 3.7. The patient's liver test on admission AST, ALT 35, 33 respectively on 04/22/19. On 04/23, AST/ALT 132-130 respectively. On 04/24/19, today, AST/ALT 191-232. LABS: Rising abnormal AST/ALT with practically normal alkaline phosphatase, total bilirubin, albumin and globulin. ASSESSMENT: 1. PNEUMONIA LINGULAR LOBE SEEMS TO BE RESOLVING. 2. PLEURITIC PAIN LEFT-SIDED SEEMS TO HAVE RESOLVED. 3. LEUKOCYTOSIS NOTED YESTERDAY. 4. WBC COUNT CLOSE TO 25,000 DOWN TO 16,000, ETIOLOGY COULD BE STEROIDS. 5. ABNORMAL LIVER PROFILE, ETIOLOGY UNKNOWN COULD BE VIRAL WITH LINGULAR LOBE PNEUMONIA. 6. THE PATIENT HAS CHOLELITHIASIS SEEMS TO BE ASYMPTOMATIC. ULTRASOUND OF THE LIVER AND GALLBLADDER EXCEPT FOR CHOLELITHIASIS DOESN'T SEEM TO HAVE ACUTE FINDINGS. TIME SPENT: More than 30 minutes. Plan and coordination of the patient's care discussed in the presence of nurse. JEFF
--- NOTE | 2019-05-02 08:23 | PN ---
DATE OF SERVICE: 04/25/19 SUBJECTIVE: The patient was seen and examined with the Nurse Practitioner. The patient's condition is stable and pneumonia seems to have resolved. REVIEW OF SYSTEMS: CONSTITUTIONAL: No night sweats. No fatigue, malaise, lethargy. No fever or chills. HEENT: Eyes: No visual changes. No eye pain. No eye discharge. ENT: No runny nose. No epistaxis. No sinus pain. No sore throat. No odynophagia. No congestion. RESPIRATORY: No cough, no congestion. No hemoptysis. No shortness of breath. CARDIOVASCULAR: No angina symptoms. No CHF symptoms. No atypical chest pain for CAD. No palpitations. No PND. No orthopnea. GASTROINTESTINAL: No abdominal pain. No nausea or vomiting. No diarrhea or constipation. No hematemesis. No hematochezia. GENITOURINARY: No urgency. No frequency. No dysuria. No hematuria. No obstructive symptoms. No discharge. No pain. No significant abnormal bleeding. MUSCULOSKELETAL: No musculoskeletal pain; no joint swelling. NEUROLOGICAL: No headache. No neck pain. No syncope. No seizures. No dizziness. PSYCHIATRIC: Not anxious. No depression. No suicidal thoughts. No homicidal thoughts. SKIN: No rash. No lesions. No wounds. ENDOCRINE: No unexplained weight loss. No weight gain. HEMATOLOGIC/LYMPHATIC: No anemia. No purpura. No petechiae. No prolonged or excessive bleeding. No palpable lymph nodes. PHYSICAL EXAMINATION: HEENT: Head normocephalic, atraumatic. Eyes: Extraocular muscles are intact. Pupils are equal, round and reactive to light and accommodation. Ears: No lesions. Nose appeared normal. Throat: No exudate or erythema. NECK: Supple. No JVD, no carotid bruit. No lymphadenopathy or thyromegaly. LUNGS: Clear to auscultation. Percussion note normal. Chest symmetrical. HEART: S1, S2, no S3. Grade I/ systolic murmurs. No cyanosis or clubbing. No ascites. Pulses: Dorsalis pedis and posterior tibial pulses +1 to +2 bilaterally. ABDOMEN: Soft. Nontender. Bowel sounds active. No CVA tenderness. No mass felt. Liver is not palpable. EXTREMITIES: No edema. Full range of motion of all extremities, equal. NEUROLOGIC: No focal deficit. Cranial nerves II through XII are grossly intact. No headache, no double vision or headache. SKIN: Not dry. Intact. Turgor - normal. LYMPHATIC: No palpable lymph nodes/no lymphedema. MUSCULOSKELETAL: Normal joints with no swelling. Muscle tone is normal. ASSESSMENT: 1. Liver enzymes are still elevated could be from medication like Levaquin or could be from Toradol that was given IV for the pain, could be Mobic and Statin combination. Could be from chronic cholecystitis with cholelithiasis could be combination of any of those factors. The patient is practically symptomatic for his abnormality of the liver. He is going to be followed by primary care who is Dr. Mariano Tran. The patient strongly advised to followup tomorrow. Case is going to be discussed with him. TIME SPENT: More than 30 minutes. Plan and coordination of the patient's care discussed in the presence of nurse. JEFF
== END 2019-04-25 14:47 | disposition home or self-care (01) | DRG 204 ==
LOC: ED 13:51 → SCU 15:24 → MEDSURG B 04-24 10:18 → EDSTATUS 04-25 07:23
PROVIDERS: ADMIT Internal Medicine; ATTEND Internal Medicine
DX: K75.9 Inflammatory liver disease, unspecified; R07.81 Pleurodynia; I10 Essential (primary) hypertension; E78.5 Hyperlipidemia, unspecified; R05 Cough; K21.9 Gastro-esophageal reflux disease without esophagitis; R07.89 Other chest pain; M19.90 Unspecified osteoarthritis, unspecified site; J18.9 Pneumonia, unspecified organism; J44.9 Chronic obstructive pulmonary disease, unspecified; J45.909 Unspecified asthma, uncomplicated